=== PATIENT | female | born 1975 | race Caucasian/White ===

== ENCOUNTER → 2017-06-28 15:15 | Outpatient (CLI) | payer OTHER, SELFPAY ==
[2017-06-30 05:17] LABS: Hep A Ab, IgM Negative (Negative); Hepatitis B Core Antibody IgM Negative (Negative); Hepatitis B Surface Antigen Negative (Negative)
[2017-06-30 10:25] LABS: HIV Screen 4th Generation wRfx Non Reactive (Non Reactive); HSV 1 IgG, Type Spec <0.91 index (0.00-0.90); Hepatitis C Antibody <0.1 s/co ratio (0.0-0.9); Rapid Plasma Reagin Ab Titer Non Reactive (NonRea<1:1)
[2017-07-02 14:53] LABS: Neisseria gonorrhoeae, NAA Negative (Negative)
== END ==
PROVIDERS: Visit Provider Nurse Practitioner Obstetrics & Gynecology
DX: Z72.51 High risk heterosexual behavior (principal)
CPT/HCPCS: 36415; 80074; 86592; 86695; 86703; 86790; 87491; 87591; G0432

== ENCOUNTER → 2017-12-23 13:59 | Outpatient (CLI) | payer OTHER, SELFPAY ==
--- NOTE | 2017-12-23 14:00 | US_ITS ---
US transvaginal Ordering Physician: Santana Pop MD Patient Age: 42 years: Female HISTORY: ITS.REASON: US T/V- Pelvic pain irregular periods Pelvic pain following TECHNIQUE: COMPARISON : FINDINGS UTERUS enlarged. It measures 11 cm in length x 5.4 cm wide x 6.1 cm height. At least 2 fibroids are identified,; along with scar at uterus Endometrial stripe appears normal thickness measuring nearly 6 mm AP. A few Nabothian cyst noted. The largest measuring 5.8 mm with another measuring 5.5 mm.. Others are tiny FIBROID A at fundus measures 2.4 x 2 cm x 2.6 cm Fibroid B: anterior myometrium, merely submucosal. It Measures 1.4 x 2 cm x 1.7 cm No fluid in cul-de-sac. Right ovary 2.2 x 1.7 x 1.8 cm. \ Left ovary 2.5 x 1 0.5 to 1.9 cm Left ovary size resides posteriorly at pelvis IMPRESSION: Uterus mildly enlarged. At least 2 fibroids identified. The largest measuring 2.6 cm at the fundus Normal endometrial stripe. . Ovaries appear normal in size. No fluid in cul-de-sac.
== END ==
PROVIDERS: Family Provider Internal Medicine; PCP Family Medicine; Visit Provider Nurse Practitioner Obstetrics & Gynecology
DX: R10.2 Pelvic and perineal pain (principal); N92.6 Irregular menstruation, unspecified
CPT/HCPCS: 76830

== ENCOUNTER → 2018-02-24 10:31 | Outpatient (CLI) | payer OTHER, SELFPAY ==
[2018-02-24 12:46] LABS: Basophils % 0.8 % (0.1-2.0); Eosinophils # 0.2 K/mm3 (0.0-0.4); Eosinophils % 4.4 % (0.1-12.0); Hematocrit 39.9 % (37.0-47.0); Hemoglobin 12.7 g/dL (12.2-16.2); Lymphocytes # 1.7 K/mm3 (0.7-4.5); Lymphocytes % 31.6 % (10-50); Mean Corpuscular HGB Conc 31.8 g/dL (31.8-35.4); Mean Corpuscular Hemoglobin 30.8 pg (27.0-31.2); Mean Corpuscular Volume 96.7 fl (81-99); Mean Platelet Volume 8.2 fl (7.4-10.4); Monocytes # 0.3 K/mm3 (0.1-1.0); Neutrophils % 57.2 % (37.0-80.0); Platelet Count 319 K/mm3 (142-424); Red Blood Count 4.12 M/mm3 (4.20-5.40); Red Cell Distribution Width 13.7 % (11.5-17.5); White Blood Count 5.3 K/mm3 (4.8-10.8)
[2018-02-24 12:47] LABS: Anion Gap 11.3 mEq/L (5-15); Blood Urea Nitrogen 13 mg/dL (7-18); Calcium 8.6 mg/dL (8.5-10.1); Carbon Dioxide 29 mmol/L (21.0-32.0); Chloride 104 mmol/L (98-107); Creatinine,Serum 0.71 mg/dL (0.55-1.02); Estimated Glomerular Filt Rate 89 ml/min (>60); GFR (African American) 108 ML/MIN (>60); Glucose 106 mg/dL (74-106); Potassium 4.3 mmoL/L (3.5-5.1); Sodium 140 mmol/L (136-145)
[2018-02-26 12:14] LABS: Neisseria gonorrhoeae, NAA Negative (Negative)
== END ==
PROVIDERS: Visit Provider Nurse Practitioner Obstetrics & Gynecology
DX: Z01.818 Encounter for other preprocedural examination (principal); R10.9 Unspecified abdominal pain
CPT/HCPCS: 36415; 80048; 85025; 87491; 87591

== ENCOUNTER 2018-02-25 06:30 | Observation (INO) ==
--- NOTE | 2018-02-25 07:14 | Progress Note ---
[facility] Anesthesia Checklist - Patient Identification Patient Identification: Arm Band, Verbal (Name & ) - Structural Data Admitted From: Home [facility] Operative Procedure(s) Verified: Yes Verified Documents: History and Physical - NPO Status Verified Time NPO: 00:00 - Chart Verification Results Verified: CBC, BMP - Additional verifications Patient : No Anesthesia Reactions: No Hx Blood Transfusions: No Blood Transfusion Reaction: No Cephalosporin Allergy: No Previous Colonoscopy: No - Cardiovascular Assessment Heart Sounds: S1 & S2 Pulse Strength: Baseline Pulse Rhythm: Regular Peripheral Edema: No - Airway Assessment C-Spine Mobility Assessed: Yes TMJ Mobility Assessed: Yes Dentition: Good Dentition - Neurological Assessment Level of Consciousness: Awake, Alert, Appropriate Hx Seizures: No Numbness or tingling in extremities: No - Anesthesia Plan Anesthesia Risk discussed: Yes Anesthesia Plan: Verified ASA Class: II Anesthesia Type: General [facility] History I have reviewed the patient's past medical history: Yes Medical History: Reports:: Anxiety, Depression Denies:: Asthma, Cancer, Diabetes Mellitus Type 1, Diabetes Mellitus Type 2, Hypertension, Internal Pacemaker, MRSA, Seizures Other Medical History: Denies: Blood Transfusion Reaction Other Surgeries: Yes: Bariatric Surgery, , Tubal Ligation. No: Pacemaker Amputation: No Fractures: No - *Social History Educational Level: Attended College Smoking Status: Never smoker Alcohol Intake: never Substance Use Type: denies use Occupational Status: employed Housing: house Household Members: family - Psychiatric History Expresses thoughts of harming self/others: None Suicide Plan Description: No Plan Pschychiatric History:: Reports:: Anxiety, Depression *Family Hx:: Cancer, Hypertension
--- NOTE | 2018-02-25 10:31 | Operative Note ---
Date of procedure: 02/25/18 Pre-op Diagnosis:: Pelvic pain, fibroid uterus, dyspareunia, cystocele, rectocele, enterocele, Post-op Diagnosis:: Same Procedure performed:: Laparoscopically assisted vaginal hysterectomy, right salpingo-oophorectomy, left salpingectomy, anterior repair, posterior repair, repair of enterocele Surgeon:: Santana Pop MD Gear Technician(s):: Lacie Sahu PATTERN STORAGE CLERK:: Ricky Scanlon Anesthesia: GETA Estimated blood loss (mL): 150 Clinical Note:: She is a 42-year-old lady who complains of pain with intercourse as well as right-sided pain. She has had pain in her right ovary in the past. She expressed desire to have this removed at the time of surgery. She also had relaxation of the vagina with a large enterocele, rectocele and cystocele. As result of this we offered her anterior and posterior repair and repair of enterocele. Operative findings:: She had a bulky anteverted uterus. The left ovary was adherent to the left pelvic sidewall and there was a 3 cm cyst attached to the left ovary and the tubes appeared normal. The right ovary and tube appeared normal. The fallopian tubes had previously ligated. The appendix was visualized and appeared normal. The upper abdomen appeared normal. The bladder flap was normal as was the deep pelvis. There was no evidence of endometriosis. Operative note:: She was taken to the operating room where general anesthesia was found be adequate. She was prepped and draped in the normal sterile fashion in the semi- lithotomy position. A weighted speculum was placed in the vagina and the anterior lip of the cervix was grasped with a tenaculum. I inserted an acorn retractor into the cervical os. I then changed gloves and injected 10 mL of 0.5 percent ropivacaine around the umbilicus. I made a small incision within the umbilicus and inserted a Veress needle into the abdominal cavity. The abdominal cavity was then insufflated with carbon dioxide gas to a pressure of 20 Nury mercury. I then inserted an 11 mm trocar under direct vision. I injected through and through the pubic hairline, made a small incision here and inserted a 5 mm trocar under direct vision. I identified the inferior epigastric arteries on the LEFT side and went lateral to these and injected through and through with a spinal needle. I made a small incision and inserted an 11 mm trocar under direct vision. This was similarly performed on the patient's RIGHT side. The LEFT round ligament was then grasped and cut with Harmonic scalpel. This was followed by the LEFT tube. I then cut through and cauterized the LEFT utero- ovarian ligament. I opened up the peritoneum anteriorly to the midline. I then took down the posterior aspect of the broad ligament to the level of the uterosacral ligament on the LEFT side. The uterine arteries on the LEFT side were then skeletonized. Hemoclips were placed across the uterine arteries and then the uterine arteries were cauterized with Harmonic scalpel adjacent to the cervix. We then further took down the bladder anteriorly. I grasped the RIGHT round ligament and cut through this with Harmonic scalpel. This was followed by the RIGHT tube. I then cauterized and cut the RIGHT utero- ovarian ligament with Harmonic scalpel. I then freed up the peritoneum anteriorly on the RIGHT side joining up with the midline. I then took down the posterior aspect of the broad ligament to the level of the uterosacral ligament. The uterine arteries on the RIGHT side were skeletonized. Hemoclips were applied to the uterine arteries. I then cauterized and cut the uterine arteries with Harmonic scalpel adjacent to the cervix. I freed up the bladder pillars on the RIGHT side and the LEFT side. I freed up the bladder anteriorly along the cervix. I then grasped the right ovary and freed this up on its infundibulopelvic ligament using harmonic scalpel. I then placed 2 Endoloops on the infundibular pelvic ligament and cut away the tube and ovary. This was then placed into the pelvis to be retrieved at the vaginal portion of the surgery. The leg was then grasped and using harmonic scalpel I cut along the mesosalpinx.. There was a 3 cm distal left tubal cyst and I opened up into the cyst and then was able to remove the left ovary in its entirety. After assuring hemostasis we then turned our attention to the vaginal portion the surgery. The patient was placed in the lithotomy position. A weighted spectrum was placed in vagina. The cervix was quite high in the vagina. The anterior and posterior lip of the cervix were grasped with Francois tenacula. I injected 20 mL of 1 percent Xylocaine with epinephrine circumferentially about the cervix. I grasped the posterior aspect of the vagina and opened up into the posterior cul-de-sac. I then clamped cut and suture ligated the left uterosacral ligament. This is followed by the left cardinal ligament which was clamped cut and suture ligated. I then clamped cut and suture ligated the right uterosacral ligament followed by the right cardinal ligament. I then grasped the anterior peritoneum and dissected the bladder off using both sharp and blunt dissection. A Christina was then placed through this defect. I then clamped across the remaining tissue bilaterally. These were then suture ligated. The uterus was then removed from the abdominal cavity. I then removed redundant tissue in the posterior vagina where she had a large anterior. This was then closed using interrupted Vicryl suture in a mattress fashion. I then closed the posterior cuff of the vagina using running 2-0 Vicryl suture in a locked fashion from left to right. I then placed a Roth suture first through the posterior vagina and peritoneum then through the left perirectal fat. I plicated across the posterior peritoneum and then through the right perirectal fascia. The suture was then passed through the peritoneum and vagina and left to be tied at the end. I then placed a second suture slightly above the first suture in a similar fashion. I used 0 PDS suture. The peritoneum was then grasped anteriorly and using 2-0 PDS suture in a pursestring fashion I closed the peritoneum. I then performed an anterior repair by first grasping the vaginal mucosa using the clamps. Then using Metzenbaum scissors I dissected in the midline approximately to a level 2 cm below the urethra. I then grasped the edges of the vaginal mucosa with Allis clamps. The bladder was then dissected off the anterior vagina. Using 2-0 PDS suture in an interrupted fashion I performed a Elaina plication. I then closed the vaginal mucosa using interrupted 2-0 Vicryl suture in a mattress fashion. The vaginal vault was then closed using running 0 Vicryl suture in a locked fashion from left to right from anterior to posteriorly. I then tied the Roth sutures in the order in which they were placed. I then performed a posterior repair by first grasping the vaginal mucosa at the introitus where the cooper were from the weighted speculum. Using a knife I made a V-shaped incision into the posterior perineum. I then grasped the vaginal mucosa and using Metzenbaum scissors I dissected the vaginal mucosa off the rectum. I then dissected away a piece of posterior vaginal mucosa approximately 1 cm wide up to the level of the enterocele. I then grasped the vaginal mucosa at the vault and placed a 2-0 Vicryl suture here. I then plicated the posterior levator muscles using interrupted 2-0 PDS suture. I did this in a [id number] closing the vaginal mucosa in a running less than with the 2-0 Vicryl suture I had placed initially. I then closed the perineum using interrupted 2-0 PDS suture. The perineal skin was then closed using interrupted subcuticular 2-0 Vicryl suture. I then placed a Arteaga catheter in the bladder. Clear urine was seen to flow. I put a vaginal packing in the vagina. She was once of again placed in the semi-lithotomy position. I changed gloves. The abdominal cavity was insufflated with carbon oxide gas to a pressure of 20 mmHg. The pelvis was rinsed and once again hemostasis was assured. I elected to place a large Surgicel around the left ovary. I sprayed the raw peritoneal surfaces on both the left and right side with Nunu. I let the gas into the abdomen to once again assuring hemostasis with decreased intra-abdominal pressure. Once again hemostasis was assured. The secondary trochars were then removed under direct vision. The sites were hemostatic. The gas was let out of the abdomen and the primary trocar and camera were removed together. No bowel seen to follow. The 11 mm trocar sites were closed deeply with 2-0 Vicryl suture followed by running subcuticular 4-0 Monocryl suture. The 5 mm trocar site was closed with subcuticular 4-0 Monocryl suture. Sterile dressings were applied. The patient tolerated the procedure well and was taken to the recovery room in excellent condition. All sponge instrument and needle counts were correct. Estimate a blood loss was approximately 150 mL. Condition: stable Disposition: PACU Specimens:: Uterus, left fallopian tube, right salpingo-oophorectomy Complications:: None
--- NOTE | 2018-02-25 10:32 | Progress Note ---
[facility] Anesthesia Record Part I Intake, IV Amount: 1,300 Estimated blood loss (mL): 150 Urine output (mL): 50 Blood Products used (#): none Blood Pressure: 135/74 SaO2: 95 Pulse Rate: 90 Respiratory Rate: 20 Temperature: 98.4 F Patient is:: Awake, Stable Stable to PACU at:: 10:30
--- NOTE | 2018-02-25 10:33 | Progress Note ---
[facility] Anesthesia Record Part II Discharge Time: 11:00 Destination: Surgical Day Care (OP Surgery) PACU nurse assessment reviewed?: Yes Patient Condition:: Good Anesthesia Complications:: None
--- NOTE | 2018-02-25 12:13 | Operative Note ---
Date of procedure: 02/25/18 Pre-op Diagnosis:: Left lower quadrant pain, left ovarian cyst Post-op Diagnosis:: Left lower quadrant pain, hemorrhagic left ovarian cyst, adhesions of the ovary to the deep pelvis. Partial torsion of the infundibulopelvic ligament. Procedure performed:: Laparoscopic left oophorectomy, lysis of adhesions Surgeon:: Santana Ppo MD SEWING MACHINE ADJUSTER:: Ricky Scanlon Anesthesia: GETA Estimated blood loss (mL): 50 Clinical Note:: She is a 42-year-old lady who complains of severe left lower quadrant pain as well as lower abdominal pain. An ultrasound confirmed that she had a enlarged left ovary approximately 6 x 4 cm. There was a solid component and it was not clear whether this was blood or solid ovary. There were 2 small cyst within the ovary as well. After having discussed the risks benefits she like to have a left oophorectomy. Operative findings:: She had an enlarged 6 x 4 cm left ovary that was filled with chocolate colored fluid. This was consistent with an old hemorrhage in the ovary. The ovary itself was in the deep pelvis overlying the rectum. There was also a single twist of the infundibula pelvic ligament indicating partial torsion. The right ovary appeared completely normal. The tubes had been previously removed. The appendix is visualized appeared normal. Operative note:: She was taken the operating room where general anesthesia was found to be adequate. She was prepped and draped in the normal sterile fashion in the semilithotomy position. A sponge forcep was placed in the vagina. I injected 10 cc of 0.5% ropivacaine around the umbilicus and made a small incision within the umbilicus. I inserted a Veress needle into the abdominal cavity. The abdominal cavity was then insufflated with carbon dioxide gas to a pressure of 20 mmHg. I then inserted an 11 mm trocar under direct vision. I injected through and through at the pubic hairline, made a small incision here and inserted a 5 mm trocar under direct vision. I then identified the ureter epigastric arteries on the left side, went lateral to these and injected through and through. I made a small incision and inserted a 5 mm trocar in the left lower quadrant under direct vision. The left ovary was adherent to the sigmoid colon and I was able to bluntly dissect this free. I was able to easily peel it away from the peritoneum and the rectum. I then further bluntly dissected the ovary from deep pelvis and left pelvic sidewall. It was then freed up completely on its infundibula pelvic ligament. There was a small twist within the infundibula pelvic ligament. I then placed 2 Endoloops on the infundibulopelvic ligament. The ovary was then cut away. I further dissected off the ovary that were still adherent to the rectum and pelvic peritoneum using blunt dissection. I then placed a 5 mm camera in the left lower quadrant and placed an Endo Catch bag through the umbilical port. The ovary and bits of ovary were then placed within the Endo Catch bag and removed through the umbilical port. I then rinsed the pelvis well and once again assured hemostasis. I placed a large piece of Interceed in the pelvis overlying the rectum. I then injected approximately 25 cc of 0.5% came into the pelvis. The gas was out of the abdomen once again hemostasis was assured. I then remove the secondary trochars under direct vision. The gas was out of the abdomen and the primary trocar and camera were removed together. No bowel seen to follow. The 11 mm trocar site was closed deeply with interrupted [id number] 2-0 Vicryl suture. The skin was closed with septic care 4-0 Monocryl. The 5 mm trocar sites were closed with septic care 4-0 Monocryl. Sterile dressings were applied. The patient tolerated the procedure well and was taken to the recovery room in excellent condition. All sponge instrument and needle counts were correct. The estimated blood loss was less than 50 cc. Condition: stable Disposition: PACU Specimens:: Left ovary Complications:: None
[2018-02-25 16:11] LABS: Hematocrit 35.5 % (37.0-47.0); Hemoglobin 11.9 g/dL (12.2-16.2)
[2018-02-26 06:36] LABS: Eosinophils # 0.1 K/mm3 (0.0-0.4); Mean Platelet Volume 7.6 fl (7.4-10.4); Monocytes # 0.6 K/mm3 (0.1-1.0); Red Cell Distribution Width 13.8 % (11.5-17.5)
[2018-02-26 06:37] LABS: Anion Gap 9.5 mEq/L (5-15); Calcium 8.2 mg/dL (8.5-10.1); Potassium 3.5 mmoL/L (3.5-5.1)
[2018-02-26 06:41] LABS: Basophils % 0.3 % (0.1-2.0); Eosinophils % 0.7 % (0.1-12.0); Hematocrit 32.3 % (37.0-47.0); Lymphocytes % 27.3 % (10-50); Mean Corpuscular HGB Conc 32.6 g/dL (31.8-35.4); Mean Corpuscular Hemoglobin 31.4 pg (27.0-31.2); Mean Corpuscular Volume 96.1 fl (81-99); Neutrophils # 4.6 K/mm3 (1.8-7.8); Neutrophils % 63.7 % (37.0-80.0); Platelet Count 248 K/mm3 (142-424); Red Blood Count 3.37 M/mm3 (4.20-5.40); White Blood Count 7.2 K/mm3 (4.8-10.8)
[2018-02-26 06:46] LABS: Hemoglobin 10.6 g/dL (12.2-16.2)
--- NOTE | 2018-02-26 10:40 | Discharge Summary ---
General - General Admission date:: 02/25/18 Discharge date: 02/26/18 HPI HPI: She is a 42-year-old lady who complains of extremely painful intercourse. She had an ultrasound that showed a fibroid uterus. She also had chronic pelvic pain as well as right-sided pain. She had pelvic relaxation with cystocele, rectocele and enterocele. After having discussed the risks and benefits she elected to have a laparoscopically assisted vaginal hysterectomy and right salpingo-nephrectomy. We removed her left ovary. We did an anterior and posterior repair along with enterocele repair. Hospital Course Hospital Course: On February 25, 2018 she underwent a laparoscopic-assisted vaginal hysterectomy and right salpingo-nephrectomy. We did a left salpingectomy. We did an anterior, posterior and enterocele repair. She has done well and has remained afebrile throughout her hospitalization. She is eating and drinking and ambulating. She has had her Arteaga catheter removed. She is voiding well. She has not had a bowel movement yet. Her pain is reasonably well controlled with oral pain medicine. She denies any shortness of breath, calf tenderness or chest pain. We will plan to discharge her home today. She will follow-up with me in 2 weeks time. We have given her prescription for hydromorphone 2 mg 1 tablet every 4-6 hours as needed for pain. She will also take Tylenol and ibuprofen. Her condition on discharge is stable. Objective Vital signs: Temp Pulse Resp BP Pulse Ox 97.7 F 72 18 116/61 96 02/26/18 09:10 02/26/18 09:10 02/26/18 09:10 02/26/18 09:10 02/26/18 09:10 no acute distress - *Routine Respiratory Exam Comments: She has good air entry bilaterally and no accessory muscle use. - *Routine Cardiovascular Exam Present: RRR, Normal S1, Normal S2 - *Routine Abdominal Exam Present: soft, normoactive bowel sounds - *Routine Skin Exam Present: intact, warm - Detailed Eye Exam Eyelids: Left normal inspection Results Labs on day of discharge: Labs from last 24 hours 02/26/18 02/26/18 02/25/18 06:05 06:05 Unknown WBC 7.2 D RBC 3.37 L Hgb 10.6 L D Hct 32.3 L MCV 96.1 MCH 31.4 H MCHC 32.6 RDW 13.8 Plt Count 248 MPV 7.6 Neut % (Auto) 63.7 Lymph % (Auto) 27.3 [place] % (Auto) 8.0 Eos % (Auto) 0.7 Baso % (Auto) 0.3 Neut # (Auto) 4.6 Lymph # (Auto) 2.0 [place] # (Auto) 0.6 Eos # (Auto) 0.1 Baso # (Auto) 0.0 Sodium 141 Potassium 3.5 Chloride 106 Carbon Dioxide 29 Anion Gap 9.5 BUN 7 D Creatinine 0.76 Estimated Creat Clear 115 Estimated GFR 83 Est GFR ( Amer) 100 Glucose 97 Calcium 8.2 L Urine Color Yellow Urine Appearance Clear Urine pH 6.0 Ur Specific [place] 1.025 Urine Protein Trace Urine Glucose (UA) Negative Urine Ketones Trace Urine Blood 1+ Urine Nitrate Negative Urine Bilirubin Negative Urine Urobilinogen 0.2 Ur Leukocyte Esterase Negative Urine RBC 3-5 Urine WBC Occasional Ur Squamous Epith Cells 5-10 Urine Bacteria Trace 02/25/18 16:04 WBC RBC Hgb 11.9 L Hct 35.5 L MCV MCH MCHC RDW Plt Count MPV Neut % (Auto) Lymph % (Auto) [place] % (Auto) Eos % (Auto) Baso % (Auto) Neut # (Auto) Lymph # (Auto) [place] # (Auto) Eos # (Auto) Baso # (Auto) Sodium Potassium Chloride Carbon Dioxide Anion Gap BUN Creatinine Estimated Creat Clear Estimated GFR Est GFR ( Amer) Glucose Calcium Urine Color Urine Appearance Urine pH Ur Specific [place] Urine Protein Urine Glucose (UA) Urine Ketones Urine Blood Urine Nitrate Urine Bilirubin Urine Urobilinogen Ur Leukocyte Esterase Urine RBC Urine WBC Ur Squamous Epith Cells Urine Bacteria DS: Diagnosis - Discharge Diagnosis (1) Pelvic pain Status: Acute (2) Dyspareunia Status: Acute (3) Fibroid, uterine Status: Acute (4) Enterocele Status: Acute (5) Cystocele Status: Acute (6) Rectocele Status: Acute Discharge Plan - Patient Discharge Instructions ACTIVITY: No heavy lifting DIET: continue same diet - Follow up Plan Disposition: Home, Self-Nursing Home Medications: Home Medications Medication Instructions Recorded Confirmed Type fluoxetine 40 mg capsule 40 mg PO DAILY cap 06/28/17 02/04/18 History gabapentin 300 mg capsule 300 mg PO TID 06/28/17 02/04/18 History Prescriptions/Medication Reconciliation: New Hydromorphone HCl [Hydromorphone 2mg Tab] 2 mg PO Q4HP PRN #30 tab PRN Reason: Severe Pain Continue fluoxetine 40 mg capsule 40 mg PO DAILY cap gabapentin 300 mg capsule 300 mg PO TID
--- NOTE | 2018-02-26 12:13 | Pharmacy Consult Notes ---
[facility] Pharmacy VTE Monitoring - Patient Demographics Admission date: 02/26/18 Report Date: 02/26/18 Time: 12:13 Allergies/Adverse Reactions: Patient Allergies silver [From Tegaderm AG Mesh] Allergy (Verified 02/25/18 06:44) Blister Height: 1.6 m Weight: 77.111 kg Patient Problems: Current Active Problems Pelvic pain (Acute) Dyspareunia (Acute) Fibroid, uterine (Acute) Enterocele (Acute) Cystocele (Acute) Rectocele (Acute) - VTE Risk Labs: VTE Related Lab Results Hgb 10.6 g/dL (12.2-16.2) L D 02/26/18 06:05 Hct 32.3 % (37.0-47.0) L 02/26/18 06:05 Plt Count 248 K/mm3 (142-424) 02/26/18 06:05 BUN 7 mg/dL (7-18) D 02/26/18 06:05 Creatinine 0.76 mg/dL (0.55-1.02) 02/26/18 06:05 Estimated Creat Clear 115 mL/min (50-200) 02/26/18 06:05 - Prophylaxis Location of Applied Device: Refused - VTE Diagnosis Confirmed Comment: LOVENOX ORDERED
== END 2018-02-26 18:25 | disposition home or self-care (01) ==
LOC: OR 06:30 → OB 06:30
PROVIDERS: ADMIT Nurse Practitioner Obstetrics & Gynecology; ATTEND Nurse Practitioner Obstetrics & Gynecology

== ENCOUNTER → 2018-05-23 09:47 | Outpatient (CLI) | payer OTHER, SELFPAY ==
[2018-05-23 10:06] LABS: Basophils # 0.1 K/mm3 (0-0.2); Eosinophils # 0.4 K/mm3 (0.0-0.4); Eosinophils % 7.1 % (0.1-12.0); Hematocrit 40.3 % (37.0-47.0); Hemoglobin 13.3 g/dL (12.2-16.2); Lymphocytes # 1.6 K/mm3 (0.7-4.5); Lymphocytes % 32.1 % (10-50); Mean Corpuscular HGB Conc 32.9 g/dL (31.8-35.4); Mean Corpuscular Volume 94.2 fl (81-99); Mean Platelet Volume 7.4 fl (7.4-10.4); Monocytes # 0.4 K/mm3 (0.1-1.0); Monocytes % 7.9 % (1.7-9.3); Neutrophils # 2.6 K/mm3 (1.8-7.8); Platelet Count 269 K/mm3 (142-424); Red Blood Count 4.27 M/mm3 (4.20-5.40); Red Cell Distribution Width 13.4 % (11.5-17.5); White Blood Count 5.1 K/mm3 (4.8-10.8)
[2018-05-23 10:48] LABS: Amphetamine/Metha Screen,Urine Negative ng/mL (<1000); Barbiturates Screen,Urine Negative ng/mL (<200); Benzodiazepines Screen,Urine Negative ng/mL (<200); Cannabinoid Screen,Urine Negative ng/mL (<50); Cocaine Screen,Urine Negative ng/mL (<300); Methadone Screen,Urine Negative ng/mL (<300); Opiate Screen,Urine Negative ng/mL (<300); Phencyclidine Screen,Urine Negative ng/mL (<25)
[2018-05-23 11:49] LABS: Alanine Aminotransferase 14 U/L (12-78); Albumin Level 4.1 gm/dL (3.4-5.0); Albumin/Globulin Ratio 1.3 (1.1-1.8); Alkaline Phosphatase 59 U/L (46-116); Anion Gap 14.3 mEq/L (5-15); Aspartate Amino Transferase 9 U/L (15-37); Bilirubin,Total 0.5 mg/dL (0.2-1.0); Blood Urea Nitrogen 19 mg/dL (7-18); Carbon Dioxide 26 mmol/L (21.0-32.0); Chloride 104 mmol/L (98-107); Chol/HDL Ratio 3.6 (1-3.5); Cholesterol 214 mg/dL (140-200); Creatinine,Serum 0.65 mg/dL (0.55-1.02); Estimated Glomerular Filt Rate 99 ml/min (>60); GFR (African American) 119 ML/MIN (>60); Globulin 3.2 gm/dl (1.3-3.2); Glucose 85 mg/dL (74-106); HDL Cholesterol 59 mg/dL (29-89); LDL Cholesterol 140 mg/dL (0-130); Potassium 4.3 mmoL/L (3.5-5.1); Sodium 140 mmol/L (136-145); T4 (Thyroxine) 5.8 ug/dl (4.7-13.3); Thyroid Stimulating Hormone 1.98 uIU/ml (0.358-3.740); Total Protein,Serum 7.3 gm/dL (6.4-8.2); Triglycerides 77 mg/dL (30-200); Triiodothryronine (T3) Uptake 34 % (31-39); VLDL Cholesterol 15 mg/dL (0-40)
[2018-05-24 07:14] LABS: Hep A Ab, IgM Negative (Negative); Hepatitis B Core Antibody IgM Negative (Negative); Hepatitis B Surface Antigen Negative (Negative)
[2018-05-24 08:09] LABS: Hepatitis C Antibody <0.1 s/co ratio (0.0-0.9); Vitamin D 25 Hydroxy 23.8 ng/mL (30.0-100.0)
== END ==
PROVIDERS: Visit Provider Nurse Practitioner Family
DX: R53.83 Other fatigue (principal); Z79.899 Other long term (current) drug therapy; F32.9 Major depressive disorder, single episode, unspecified; F41.9 Anxiety disorder, unspecified
CPT/HCPCS: 36415; 80053; 80061; 80074; 80305; 82652; 84436; 84443; 84479; 85025

== ENCOUNTER → 2018-06-22 18:53 | Outpatient (CLI) | payer OTHER, SELFPAY ==
[2018-06-22 20:31] LABS: Amphetamine/Metha Screen,Urine Negative ng/mL (<1000); Barbiturates Screen,Urine Negative ng/mL (<200); Benzodiazepines Screen,Urine Negative ng/mL (<200); Cannabinoid Screen,Urine Negative ng/mL (<50); Cocaine Screen,Urine Negative ng/mL (<300); Methadone Screen,Urine Negative ng/mL (<300); Opiate Screen,Urine Negative ng/mL (<300); Phencyclidine Screen,Urine Negative ng/mL (<25)
== END ==
PROVIDERS: Visit Provider Nurse Practitioner Family
DX: Z79.899 Other long term (current) drug therapy (principal)
CPT/HCPCS: 80305

== ENCOUNTER → 2018-07-13 10:42 | Outpatient (CLI) | payer OTHER, SELFPAY ==
--- NOTE | 2018-07-13 10:46 | CT_ITS ---
CT Temporal bone Without INDICATION: ITS.REASON: complete hearing loss right ear ORDERING PHYSICIAN: Demetrius Espino MD PATIENT AGE: 43 years COMPARISON: None TECHNIQUE: Axial images are obtained without contrast. Sagittal and coronal reformatted images are reviewed as well. All CT scans at the facility use one or more dose reduction, viz: automated exposure control, ma/kV adjustment per patient size (including targeted exams where dose is matched to indication, i.e. head), or iterative reconstruction technique. FINDINGS: No mastoid effusion. The middle ear is well aerated on both sides. The middle ear ossicles have an unremarkable appearance. There is no evidence of skeletal erosion. There is some aeration of the petrous bone on the right as normal variant.. The acoustic foramina are symmetric. IMPRESSION: Unremarkable CT of the temporal bones
== END ==
PROVIDERS: PCP Emergency Medicine; Visit Provider Otolaryngology
DX: H90.5 Unspecified sensorineural hearing loss (principal); F41.9 Anxiety disorder, unspecified
CPT/HCPCS: 70480

== ENCOUNTER → 2018-07-26 14:43 | Outpatient (CLI) | payer OTHER, SELFPAY ==
[2018-07-26 16:12] LABS: Amphetamine/Metha Screen,Urine Negative ng/mL (<1000); Barbiturates Screen,Urine Negative ng/mL (<200); Benzodiazepines Screen,Urine Negative ng/mL (<200); Cannabinoid Screen,Urine Negative ng/mL (<50); Cocaine Screen,Urine Negative ng/mL (<300); Methadone Screen,Urine Negative ng/mL (<300); Opiate Screen,Urine Negative ng/mL (<300); Phencyclidine Screen,Urine Negative ng/mL (<25)
== END ==
PROVIDERS: Visit Provider Nurse Practitioner Family
DX: Z79.899 Other long term (current) drug therapy (principal)
CPT/HCPCS: 80305

== ENCOUNTER → 2018-09-14 14:15 | Outpatient (CLI) | payer OTHER, SELFPAY ==
[2018-09-14 14:45] LABS: Basophils % 0.5 % (0.1-2.0); Eosinophils # 0.2 K/mm3 (0.0-0.4); Eosinophils % 3.8 % (0.1-12.0); Hematocrit 38.2 % (37.0-47.0); Hemoglobin 13.1 g/dL (12.2-16.2); Lymphocytes # 1.9 K/mm3 (0.7-4.5); Lymphocytes % 42.1 % (10-50); Mean Corpuscular HGB Conc 34.3 g/dL (31.8-35.4); Mean Corpuscular Hemoglobin 31.2 pg (27.0-31.2); Mean Corpuscular Volume 90.9 fl (81-99); Mean Platelet Volume 7.7 fl (7.4-10.4); Monocytes # 0.3 K/mm3 (0.1-1.0); Monocytes % 6.1 % (1.7-9.3); Neutrophils # 2.1 K/mm3 (1.8-7.8); Neutrophils % 47.5 % (37.0-80.0); Platelet Count 299 K/mm3 (142-424); Red Cell Distribution Width 13.6 % (11.5-17.5); White Blood Count 4.4 K/mm3 (4.8-10.8)
[2018-09-14 17:09] LABS: Alanine Aminotransferase 19 U/L (12-78); Albumin Level 4.2 gm/dL (3.4-5.0); Albumin/Globulin Ratio 1.5 (1.1-1.8); Alkaline Phosphatase 67 U/L (46-116); Anion Gap 13.7 mEq/L (5-15); Aspartate Amino Transferase 11 U/L (15-37); Bilirubin,Total 0.6 mg/dL (0.2-1.0); Blood Urea Nitrogen 17 mg/dL (7-18); Carbon Dioxide 27 mmol/L (21.0-32.0); Chloride 105 mmol/L (98-107); Chol/HDL Ratio 4.3 (1-3.5); Cholesterol 228 mg/dL (140-200); Creatinine,Serum 0.65 mg/dL (0.55-1.02); Estimated Glomerular Filt Rate 99 ml/min (>60); GFR (African American) 119 ML/MIN (>60); Globulin 2.8 gm/dl (1.3-3.2); Glucose 85 mg/dL (74-106); HDL Cholesterol 53 mg/dL (29-89); LDL Cholesterol 153 mg/dL (0-130); Potassium 3.7 mmoL/L (3.5-5.1); Sodium 142 mmol/L (136-145); Triglycerides 110 mg/dL (30-200); VLDL Cholesterol 22 mg/dL (0-40)
[2018-09-16 07:33] LABS: Estradiol 46.7 pg/mL (.); FSH 44.8 mIU/mL (.); LH 37.3 mIU/mL (.)
== END ==
PROVIDERS: Visit Provider Nurse Practitioner Obstetrics & Gynecology
DX: Z01.419 Encounter for gynecological examination (general) (routine) without abnormal findings (principal); E34.9 Endocrine disorder, unspecified; R53.82 Chronic fatigue, unspecified; Z79.890 Hormone replacement therapy
CPT/HCPCS: 36415; 80053; 80061; 82670; 83001; 83002; 85025

== ENCOUNTER → 2018-11-17 14:30 | Outpatient (CLI) | payer OTHER, SELFPAY ==
--- NOTE | 2018-11-17 14:32 | MR_ITS ---
MR lumbar spine wo con, MR 3-d myelogram/MRCP HISTORY: LBP XYRS. RT sided LBP. Constant pain RT hip and leg. Numbness down RT leg. ITS.REASON: back pain ORDERING PHYSICIAN: Dima Hernandez MD PATIENT AGE: 43 years Comparison: None TECHNIQUE: Standard multiplanar multiecho sequences are performed without contrast. 3-D MIP and myelographic images are also rendered and reviewed FINDINGS: There is normal alignment. The spinal cord ends at the L1-L2 level. T12-L1: Mild bulging disc anteriorly. L1-L2: Unremarkable. L2-L3: Unremarkable. L3-L4: Unremarkable. L4-L5: Mild facet and ligamentum flavum hypertrophy with mild bilateral foraminal narrowing and mild bilateral lateral recess narrowing. L5-S1: Mild facet and ligamentum hypertrophy with mild left-sided foraminal narrowing. No canal stenosis or disc herniation evident. There is a cystic structure noted measuring 2.4 cm anterior to the left psoas muscle which could be ovarian in nature. Incompletely imaged. IMPRESSION: 1. Mild degenerative changes with mild facet and ligamentum flavum hypertrophy with mild lateral recess and foraminal narrowing. PLEASE SEE ABOVE FOR DETAILED DESCRIPTION AT EACH LEVEL. 2. No canal stenosis or disc herniation. 3. Cystic lesion anterior to the left psoas muscle in the upper pelvic region incompletely imaged possibly ovarian.
== END ==
PROVIDERS: PCP Emergency Medicine; Visit Provider Emergency Medicine
DX: M54.9 Dorsalgia, unspecified (principal); M54.5 Low back pain
CPT/HCPCS: 72148; 76376

== ENCOUNTER → 2018-11-25 17:36 | Outpatient (CLI) | payer OTHER, SELFPAY ==
[2018-11-25 19:48] LABS: Barbiturates Screen,Urine Negative ng/mL (<200); Benzodiazepines Screen,Urine Negative ng/mL (<200); Cannabinoid Screen,Urine Negative ng/mL (<50); Cocaine Screen,Urine Negative ng/mL (<300); Methadone Screen,Urine Negative ng/mL (<300); Opiate Screen,Urine Negative ng/mL (<300); Phencyclidine Screen,Urine Negative ng/mL (<25)
[2018-11-25 20:16] LABS: Amphetamine/Metha Screen,Urine Negative ng/mL (<1000)
[2018-12-02 04:17] LABS: Alprazolam Negative (Cutoff=100); Benzodiazepines Negative ng/mL (Cutoff=100); Clonazepam Negative (Cutoff=100); Flurazepam Negative (Cutoff=100); Lorazepam Negative (Cutoff=100); Midazolam Negative (Cutoff=100); Temazepam Negative (Cutoff=100); Triazolam Negative (Cutoff=100)
== END ==
PROVIDERS: Visit Provider Emergency Medicine
DX: Z79.899 Other long term (current) drug therapy (principal)
CPT/HCPCS: 80305; 80346

== ENCOUNTER → 2018-11-28 12:47 | Outpatient (POV) | payer OTHER, SELFPAY | PROVIDERS: Visit Provider Specialist | DX: G56.03 Carpal tunnel syndrome, bilateral upper limbs (principal); R20.0 Anesthesia of skin; R20.2 Paresthesia of skin | CPT/HCPCS: 95886; 95908 ==

== ENCOUNTER → 2018-12-09 13:20 | Outpatient (CLI) | payer OTHER, SELFPAY ==
[2018-12-09 14:50] LABS: Basophils % 0.6 % (0.1-2.0); Eosinophils # 0.3 K/mm3 (0.0-0.4); Eosinophils % 6.3 % (0.1-12.0); Hematocrit 45.1 % (37.0-47.0); Hemoglobin 14.4 g/dL (12.2-16.2); Lymphocytes # 1.8 K/mm3 (0.7-4.5); Lymphocytes % 42.1 % (10-50); Mean Corpuscular Hemoglobin 30.3 pg (27.0-31.2); Mean Corpuscular Volume 94.7 fl (81-99); Mean Platelet Volume 8.4 fl (7.4-10.4); Monocytes # 0.3 K/mm3 (0.1-1.0); Monocytes % 7.8 % (1.7-9.3); Neutrophils # 1.8 K/mm3 (1.8-7.8); Neutrophils % 43.1 % (37.0-80.0); Platelet Count 344 K/mm3 (142-424); Red Blood Count 4.76 M/mm3 (4.20-5.40); Red Cell Distribution Width 13.4 % (11.5-17.5); White Blood Count 4.2 K/mm3 (4.8-10.8)
[2018-12-09 15:18] LABS: Alanine Aminotransferase 15 U/L (12-78); Albumin Level 4.3 gm/dL (3.4-5.0); Albumin/Globulin Ratio 1.3 (1.1-1.8); Alkaline Phosphatase 74 U/L (46-116); Anion Gap 10.8 mEq/L (5-15); Aspartate Amino Transferase 15 U/L (15-37); Bilirubin,Total 0.4 mg/dL (0.2-1.0); Blood Urea Nitrogen 17 mg/dL (7-18); Calcium 9.7 mg/dL (8.5-10.1); Carbon Dioxide 29 mmol/L (21.0-32.0); Chloride 104 mmol/L (98-107); Creatinine,Serum 0.75 mg/dL (0.55-1.02); Estimated Glomerular Filt Rate 84 ml/min (>60); Free T4 (Free Thyroxine) 0.81 ng/dl (0.76-1.46); GFR (African American) 101 ML/MIN (>60); Globulin 3.3 gm/dl (1.3-3.2); Glucose 67 mg/dL (74-106); Potassium 4.8 mmoL/L (3.5-5.1); Sodium 139 mmol/L (136-145); Thyroid Stimulating Hormone 1.79 uIU/ml (0.358-3.740); Total Protein,Serum 7.6 gm/dL (6.4-8.2)
[2018-12-09 15:21] LABS: C-Reactive Protein < 0.2 mg/dL (0.0-0.9)
[2018-12-09 15:32] LABS: Erythrocyte Sedimentation Rate 7 mm/hr (0-20)
[2018-12-10 12:52] LABS: Vitamin B12 232 pg/mL (232-1245); Vitamin D 25 Hydroxy 22.8 ng/mL (30.0-100.0)
== END ==
PROVIDERS: Visit Provider Emergency Medicine
DX: R20.0 Anesthesia of skin (principal); R20.2 Paresthesia of skin
CPT/HCPCS: 80053; 82607; 82652; 84439; 84443; 85025; 85651; 86140

== ENCOUNTER → 2018-12-21 10:08 | Outpatient (CLI) | payer OTHER, SELFPAY ==
--- NOTE | 2018-12-21 10:09 | MR_ITS ---
PROCEDURE: MR CERVICAL SPINE WO CON CLINICAL INDICATION: radiating neck pain Bilateral arm tingling and numbness and tingling on the right side of neck, right-sided neck pain with headache dizziness and blurred vision COMPARISON: No exams were available for comparison TECHNIQUE: Standard multiplanar multiecho sequences are performed without contrast. 3-D MIP and myelographic images are also rendered and reviewed FINDINGS: There is normal alignment. The cranial cervical junction has an unremarkable appearance. C2-C3: Unremarkable. C3-C4: Unremarkable. C4-C5: Mild bulging disc eccentric toward the left without impingement. Mild left lateral recess and foraminal narrowing. C5-C6: Degenerate disc disease with mild bulging disc along with bilateral uncovertebral hypertrophy. There narrowing of the canal at 9 mm along with moderate bilateral lateral recess and severe bilateral foraminal narrowing. The bulging disc abuts the anterior aspect of the cord with minimal contour deformity anteriorly. C6-C7: Mild bulging disc along with mild uncovertebral hypertrophy. There is mild left foraminal narrowing. C7-T1: Unremarkable. IMPRESSION: 1. C4-C5: Mild bulging disc eccentric toward the left without impingement. Mild left lateral recess and foraminal narrowing. 2. C5-C6: Degenerate disc disease with mild bulging disc along with bilateral uncovertebral hypertrophy. There narrowing of the canal at 9 mm along with moderate bilateral lateral recess and severe bilateral foraminal narrowing. The bulging disc abuts the anterior aspect of the cord with minimal contour deformity anteriorly 3. No extruded herniated disc apparent Dictated by: Ziggy Hightower MD 12/23/2018 09:00 Electronically signed by Ziggy Hightower MD in [place] 12/23/2018 09:00
--- NOTE | 2018-12-21 10:09 | MR_ITS ---
PROCEDURE: MR HEAD/BRAIN WO CON CLINICAL INDICATION: numbness and tingling Bilateral arm numbness, tingling on right side neck and shoulder, headache and dizziness with blurred vision COMPARISON: No exams were available for comparison TECHNIQUE: Routine multiplanar multi echo sequences are performed without gadolinium enhancement. FINDINGS: No midline shift, mass effect, intracranial hemorrhage, hydrocephalus, or acute cortical infarction is evident. The cerebellopontine angle, cerebellum, and brainstem are unremarkable. There is a nonspecific small T2 white matter hyperintensity in the left occipital lobe nonspecific and may be due to a small gliotic focus. The pituitary, optic chiasm, corpus callosum, and craniocervical junction have an unremarkable appearance. There is mild mucosal thickening of the ethmoid and maxillary sinuses. There is only minimal increased T2 signal in the right mastoid sinus IMPRESSION: 1. No acute intracranial findings. 2. Mild sinus disease Dictated by: Ziggy Hightower MD 12/22/2018 17:08 Electronically signed by Ziggy Hightower MD in [place] 12/22/2018 17:08
== END ==
PROVIDERS: PCP Emergency Medicine; Visit Provider Emergency Medicine
DX: M54.2 Cervicalgia (principal); R20.0 Anesthesia of skin; R20.2 Paresthesia of skin
CPT/HCPCS: 70551; 72141; 76376

== ENCOUNTER → 2019-01-09 11:00 | Outpatient (POV) | payer OTHER, SELFPAY ==
[2019-01-09 11:28] VITALS: BP 126/84; PULSE 59; RESP 18; O2SAT 98; BMI 33.6
--- NOTE | 2019-01-09 12:49 | HMH.PMCON ---
Assessment and Plan (1) Degenerative disc disease, cervical Current visit: Yes Status: Chronic Category: Medical Code(s): M50.30 - Other cervical disc degeneration, unspecified cervical region - Assessment and plan all Dx Assessment and Plan for all problems:: I offered the patient injected therapy she is uninterested in this and would like to continue on her chronic medications from her primary care physician. Patient has an appointment with Dr. Orta I recommended calling her office if the would like her to proceed with epidurals prior to surgery. Dr. Webber has reviewed this note and agrees with this plan of care. This note was dictated using voice recognition software and may contain errors or omissions HPI - Data of Consult Patient: new to practice Requesting Physician: Donna Mcintyre APRN Primary Care Provider: Dima Hernandez MD Family Provider: Dr. Hernandez - Consult Narrative Reason for consult: Neck pain, back pain History of present illness: Ms. Cash is a 43 year old female who presents today for consultation in regards to her neck pain. Patient has a recent MRI showing C5-C6 degenerative disc disease mild bulging disc along with canal stenosis. Most of her pain is in her neck rating down her left arm. Patient does have an appointment with Dr. Orta. Primary care physician has started her on [place] and gabapentin. Patient and I had a long discussion in regards to treatment. Patient is uninterested in injective therapy she states she would like to continue on the medication at this time. CC: Donna Mcintyre APRN [facility] History I have reviewed the patient's past medical history: Yes Medical History: Reports:: Anxiety, Depression, Hyperlipidemia Denies:: Asthma, Cancer, Diabetes Mellitus Type 1, Diabetes Mellitus Type 2, Hypertension, Internal Pacemaker, MRSA, Seizures *Have you ever received a pneumonia vaccine?: Yes *Have you received a flu vaccine this season?: Yes Other Medical History: Denies: Blood Transfusion Reaction Laterality Cases: Bilateral: Other Other Surgeries: Yes: Bariatric Surgery, Cholecystectomy, , Hysterectomy-Total, Hysterectomy-Partial, Tubal Ligation, Other. No: Pacemaker Amputation: No Fractures: No - *Social History Smoking Status: Never smoker Alcohol Intake: never Substance Use Type: denies use *Occupational Status:: employed, other Housing: house Household Members: family *Travel in the last 8 weeks: None - Psychiatric History Pschychiatric History:: Reports:: Anxiety, Depression Family Hx:: Cancer, Hypertension, Heart Attack Review of Systems - Review of Systems ROS General: no recent weight change, no fever, no sleep disturbances Respiratory: no cough, no shortness of air, no recurring pulmonary infections Cardiovascular/Peripheral Vascular: No chest pain, No palpitations, no edema, no shortness of breath. Gastrointestinal: no incontinence, normal bowel movements reported Genitourinary: no incontinence Musculoskeletal: Neck pain, arm pain Psychiatric: normal mood/ affect, Neurological: [denies weakness in extremities], [denies balance issues] Meds Home Medications Medication Instructions Recorded Confirmed Type valacyclovir 500 mg tablet PO 30 Days #30 tab 03/14/18 12/30/18 History estradiol 2 mg tablet 2 mg PO DAILY #30 tab 09/21/18 12/30/18 Rx trazodone 50 mg tablet 50 mg PO QHS #30 tab 11/25/18 12/30/18 Rx cholecalciferol (vitamin D3) 1,000 1,000 unit PO DAILY #90 cap 12/12/18 12/30/18 Rx unit capsule ergocalciferol (vitamin D2) 50,000 50,000 unit PO QWEEK 90 Days #12 12/12/18 12/30/18 Rx unit capsule cap risperidone 0.25 mg tablet 0.25 mg PO BID #60 tab 12/14/18 12/30/18 Rx lamotrigine 25 mg tablet See Rx Instructions PO .COMPLEX 12/15/18 12/30/18 Rx #42 tab clonazepam 0.5 mg tablet 0.5 mg PO BID PRN 30 Days #60 tab 12/30/18 Rx gabapentin 800 mg tablet 800 mg PO TID 30 Days #90 tab 12/30/18 Rx Allerg
--- NOTE | 2019-01-09 12:54 | P.CONS_ITS ---
Assessment and Plan (1) Degenerative disc disease, cervical Current visit: Yes Status: Chronic Category: Medical Code(s): M50.30 - Other cervical disc degeneration, unspecified cervical region - Assessment and plan all Dx Assessment and Plan for all problems:: I offered the patient injected therapy she is uninterested in this and would like to continue on her chronic medications from her primary care physician. Patient has an appointment with Dr. Orta I recommended calling her office if the would like her to proceed with epidurals prior to surgery. Dr. Webber has reviewed this note and agrees with this plan of care. This note was dictated using voice recognition software and may contain errors or omissions HPI - Data of Consult Patient: new to practice Requesting Physician: Donna Mcintyre APRN Primary Care Provider: Dima Hernandez MD Family Provider: Dr. Hernandez - Consult Narrative Reason for consult: Neck pain, back pain History of present illness: Ms. Cash is a 43 year old female who presents today for consultation in regards to her neck pain. Patient has a recent MRI showing C5-C6 degenerative disc disease mild bulging disc along with canal stenosis. Most of her pain is in her neck rating down her left arm. Patient does have an appointment with Dr. Orta. Primary care physician has started her on [place] and gabapentin. Patient and I had a long discussion in regards to treatment. Patient is uninterested in injective therapy she states she would like to continue on the medication at this time. CC: Donna Mcintyre APRN [facility] History I have reviewed the patient's past medical history: Yes Medical History: Reports:: Anxiety, Depression, Hyperlipidemia Denies:: Asthma, Cancer, Diabetes Mellitus Type 1, Diabetes Mellitus Type 2, Hypertension, Internal Pacemaker, MRSA, Seizures *Have you ever received a pneumonia vaccine?: Yes *Have you received a flu vaccine this season?: Yes Other Medical History: Denies: Blood Transfusion Reaction Laterality Cases: Bilateral: Other Other Surgeries: Yes: Bariatric Surgery, Cholecystectomy, , Hysterectomy-Total, Hysterectomy-Partial, Tubal Ligation, Other. No: Pacemaker Amputation: No Fractures: No - *Social History Smoking Status: Never smoker Alcohol Intake: never Substance Use Type: denies use *Occupational Status:: employed, other Housing: house Household Members: family *Travel in the last 8 weeks: None - Psychiatric History Pschychiatric History:: Reports:: Anxiety, Depression Family Hx:: Cancer, Hypertension, Heart Attack Review of Systems - Review of Systems ROS General: no recent weight change, no fever, no sleep disturbances Respiratory: no cough, no shortness of air, no recurring pulmonary infections Cardiovascular/Peripheral Vascular: No chest pain, No palpitations, no edema, no shortness of breath. Gastrointestinal: no incontinence, normal bowel movements reported Genitourinary: no incontinence Musculoskeletal: Neck pain, arm pain Psychiatric: normal mood/ affect, Neurological: [denies weakness in extremities], [denies balance issues] Meds Home Medications Medication Instructions Recorded Confirmed Type valacyclovir 500 mg tablet PO 30 Days #30 tab 03/14/18 12/30/18 History estradiol 2 mg tablet 2 mg PO DAILY #30 tab 09/21/18 12/30/18 Rx trazodone 50 mg tablet 50 mg PO QHS #30 tab 11/25/18 12/30/18 Rx cholecalciferol (vitamin D3) 1,000 1,000 unit PO DAILY
== END ==
PROVIDERS: PCP Emergency Medicine; Visit Provider Clinical Nurse Specialist Family Health
DX: M50.30 Other cervical disc degeneration, unspecified cervical region (principal)
CPT/HCPCS: 99202

== ENCOUNTER → 2019-01-25 13:21 | Outpatient (CLI) | payer OTHER, SELFPAY ==
[2019-01-25 14:57] LABS: Amphetamine/Metha Screen,Urine Negative ng/mL (<1000); Barbiturates Screen,Urine Negative ng/mL (<200); Benzodiazepines Screen,Urine Negative ng/mL (<200); Cannabinoid Screen,Urine Negative ng/mL (<50); Cocaine Screen,Urine Negative ng/mL (<300); Methadone Screen,Urine Negative ng/mL (<300); Opiate Screen,Urine Positive ng/mL (<300); Phencyclidine Screen,Urine Negative ng/mL (<25)
[2019-01-30 11:12] LABS: Alprazolam Negative (Cutoff=100); Benzodiazepines Negative ng/mL (Cutoff=100); Clonazepam Negative (Cutoff=100); Flurazepam Negative (Cutoff=100); Lorazepam Negative (Cutoff=100); Midazolam Negative (Cutoff=100); Temazepam Negative (Cutoff=100); Triazolam Negative (Cutoff=100)
== END ==
PROVIDERS: Visit Provider Emergency Medicine
DX: M54.2 Cervicalgia (principal); Z79.899 Other long term (current) drug therapy
CPT/HCPCS: 80305; 80346

== ENCOUNTER → 2019-02-28 11:09 | Outpatient (POV) | payer OTHER, SELFPAY ==
[2019-02-28 12:16] VITALS: BP 128/62; PULSE 65; RESP 18; O2SAT 98; BMI 34.0
--- NOTE | 2019-03-06 15:08 | HMH.PAINSOAP ---
[facility] Pain Management SOAP Note Subjective:: Patient is a pleasant 44-year-old white female who presents today to discuss potential cervical epidural steroid injections. Patient was seen in our office sometime ago awaiting for neurosurgical consultation. She was uninterested in injective therapy at that time however she did not make it to her neurosurgical appointment. She would like to be considered again for cervical epidural steroid injections. Patient has neck pain radiation into her arms. Patient and I had a long discussion in regards to the cervical epidural steroid injection and she would like to move forward with this. She rates her pain a 5 out of 10 however it does increase. Patient is not on any anticoagulation therapy. She is continuing a home stretching program. ROS General: no recent weight change, no fever, no sleep disturbances Respiratory: no cough, no shortness of air, no recurring pulmonary infections Cardiovascular/Peripheral Vascular: No chest pain, No palpitations, no edema, no shortness of breath. Gastrointestinal: no new onset incontinence, normal bowel movements reported Genitourinary: no new onset incontinence Musculoskeletal: Neck pain, arm pain Psychiatric: normal mood/ affect Neurological: [denies new onset weakness in extremities], [denies new onset balance issues] Objective:: Physical Exam General: Alert and oriented x3, no acute distress, pleasant and cooperative, [on room air] Lungs: Resps E/U, Symmetrical chest expansion, Eyes: PERRL Musculoskeletal: Flexion and extension of cervical spine somewhat guarded secondary to pain, deep tendon reflexes normal, strength in upper and lower extremities [5/5], normal gait noted Neurological: speech clear, supervisor bit and shank department equal, no gross sensory deficits Assessment:: Degenerative disc disease cervical spine with cervical radiculopathy Plan:: We will plan a C5-C6 cervical epidural steroid injection with the patient believe it would be beneficial given the symptomology of the patient. I will follow-up with patient after injection reassess her symptoms at that time she has been instructed to call the office if she has any issues prior to her next appointment. Dr. Webber has reviewed this note and agrees with this plan of care. This note was dictated using voice recognition software and may contain errors or omissions [facility] History I have reviewed the patient's past medical history: Yes Medical History: Reports:: Anxiety, Depression, Hyperlipidemia Denies:: Asthma, Cancer, Diabetes Mellitus Type 1, Diabetes Mellitus Type 2, Hypertension, Internal Pacemaker, MRSA, Seizures *Have you ever received a pneumonia vaccine?: No *Have you received a flu vaccine this season?: No Other Medical History: Denies: Blood Transfusion Reaction Laterality Cases: Other Surgeries: Yes: Bariatric Surgery, Cholecystectomy, , Hysterectomy-Total, Hysterectomy-Partial, Tubal Ligation, Other. No: Pacemaker Amputation: No Fractures: No - *Social History Smoking Status: Never smoker Alcohol Intake: never Substance Use Type: denies use *Occupational Status:: other Housing: house Household Members: family *Travel in the last 8 weeks: None - Psychiatric History Pschychiatric History:: Reports:: Anxiety, Depression Family Hx:: Cancer, Hypertension, Heart Attack
== END ==
PROVIDERS: PCP Emergency Medicine; Visit Provider Clinical Nurse Specialist Family Health
DX: M50.10 Cervical disc disorder with radiculopathy, unspecified cervical region (principal)
CPT/HCPCS: 99212

== ENCOUNTER → 2019-03-24 13:33 | Outpatient (CLI) | payer OTHER, SELFPAY ==
[2019-03-24 14:29] LABS: Amphetamine/Metha Screen,Urine Negative ng/mL (<1000); Barbiturates Screen,Urine Negative ng/mL (<200); Benzodiazepines Screen,Urine Negative ng/mL (<200); Cannabinoid Screen,Urine Negative ng/mL (<50); Cocaine Screen,Urine Negative ng/mL (<300); Methadone Screen,Urine Negative ng/mL (<300); Opiate Screen,Urine Positive ng/mL (<300); Phencyclidine Screen,Urine Negative ng/mL (<25)
== END ==
PROVIDERS: Visit Provider Emergency Medicine
DX: F41.9 Anxiety disorder, unspecified (principal)
CPT/HCPCS: 80305

== ENCOUNTER → 2019-08-22 17:53 | Outpatient (CLI) | payer OTHER, SELFPAY ==
[2019-08-22 18:27] LABS: Basophils # 0.1 K/mm3 (0-0.2); Basophils % 1.4 % (0.1-2.0); Eosinophils # 0.3 K/mm3 (0.0-0.4); Eosinophils % 5.5 % (0.1-12.0); Hematocrit 41.3 % (37.0-47.0); Hemoglobin 13.9 g/dL (12.2-16.2); Lymphocytes # 2.2 K/mm3 (0.7-4.5); Lymphocytes % 37.9 % (10-50); Mean Corpuscular HGB Conc 33.8 g/dL (31.8-35.4); Mean Corpuscular Volume 91.7 fl (81-99); Mean Platelet Volume 8.8 fl (7.4-10.4); Monocytes # 0.4 K/mm3 (0.1-1.0); Monocytes % 6.5 % (1.7-9.3); Neutrophils # 2.8 K/mm3 (1.8-7.8); Neutrophils % 48.6 % (37.0-80.0); Platelet Count 317 K/mm3 (142-424); Red Cell Distribution Width 13.6 % (11.5-17.5); White Blood Count 5.8 K/mm3 (4.8-10.8)
[2019-08-22 19:41] LABS: Chloride 100 mmol/L (98-107)
[2019-08-22 19:42] LABS: Potassium 4.4 mmoL/L (3.5-5.1); Sodium 139 mmol/L (136-145)
[2019-08-22 19:44] LABS: Alanine Aminotransferase 15 U/L (12-78); Alkaline Phosphatase 66 U/L (38-126); Anion Gap 16.4 mEq/L (5-15); Aspartate Amino Transferase 28 U/L (14-36); Bilirubin,Total 0.5 mg/dl (0.2-1.3); Blood Urea Nitrogen 16 mg/dl (7-17); Carbon Dioxide 27 mmol/L (22.0-30.0); Estimated Glomerular Filt Rate 77 ml/min (>60); GFR (African American) 93 ML/MIN (>60)
[2019-08-22 19:45] LABS: Albumin Level 4.8 g/dl (3.5-5.0); Albumin/Globulin Ratio 1.5 (1.1-1.8); Calcium 9.9 mg/dl (8.4-10.2); Globulin 3.1 g/dL (1.3-3.2); Glucose 92 mg/dl (74-100); Magnesium 1.9 mg/dl (1.6-2.3); Total Protein,Serum 7.9 g/dl (6.3-8.2)
[2019-08-22 20:15] LABS: Erythrocyte Sedimentation Rate 16 mm/hr (0-20)
[2019-08-24 12:56] LABS: Vitamin D 25 Hydroxy 36.5 ng/mL (30.0-100.0)
== END ==
PROVIDERS: Visit Provider Emergency Medicine
DX: F41.9 Anxiety disorder, unspecified (principal); M54.2 Cervicalgia
CPT/HCPCS: 80053; 82652; 83735; 85025; 85651

== ENCOUNTER → 2019-10-15 15:46 | Outpatient (CLI) | payer OTHER, SELFPAY ==
--- NOTE | 2019-10-15 15:57 | XR_ITS ---
PROCEDURE: XR KNEE RT 3V Patient Age:44Y CLINICAL INDICATION: knee pain Right knee pain for 3 weeks stepped down out of bed and developed right knee pain. Large patient. COMPARISON: No exams were available for comparison FINDINGS: 3 right knee-3view: AP, lateral and oblique No fracture or dislocation. No lytic or blastic change. There is normal mineralization. The joint spaces are well-preserved in this large patient on this nonweightbearing film. No significant degenerative/arthritic changes. No erosive changes evident. IMPRESSION: Right knee intact. No fracture No significant acute findings Dictated by: Murali Arvizu MD 10/15/2019 21:44 Electronically signed by Murali Arvizu MD in [place] 10/15/2019 21:44
== END ==
PROVIDERS: PCP Emergency Medicine; Visit Provider Emergency Medicine
DX: M25.561 Pain in right knee (principal)
CPT/HCPCS: 73562

== ENCOUNTER → 2019-10-30 14:52 | Outpatient (CLI) | payer OTHER, SELFPAY ==
--- NOTE | 2019-10-30 15:03 | XR_ITS ---
PROCEDURE: XR KNEE RT 4V CLINICAL INDICATION: rt knee pain COMPARISON: XR KNEE RT 3V from 10/15/2019 FINDINGS: No fracture or dislocation. No lytic or blastic change. There is normal mineralization. Minimal osteoarthritic change of the lateral aspect of the patellofemoral joint. Minimal lateral patellar subluxation. There is lucency noted over the inferior aspect of the patella on the lateral view. Has there been recent surgery, injection, or trauma? Other findings:None. IMPRESSION: Minimal osteoarthritic change. Lucency noted along the inferior pole of the patella suggesting some soft tissue gas. Dictated by: Ziggy Hightower MD 10/30/2019 16:59 Electronically signed by Ziggy Hightower MD in [place] 10/30/2019 16:59
== END ==
PROVIDERS: PCP Emergency Medicine; Visit Provider Orthopaedic Surgery
DX: M25.561 Pain in right knee (principal)
CPT/HCPCS: 73564

== ENCOUNTER → 2019-11-09 08:06 | Outpatient (CLI) | payer OTHER, SELFPAY ==
--- NOTE | 2019-11-09 08:10 | MR_ITS ---
PROCEDURE: MR KNEE RT WO CON CLINICAL INDICATION: right knee pain Knee pain after [id number] ago. Pain when walking. Posterior and medial sided knee pain. Prior X-Ray 10-30-19 COMPARISON: XR KNEE RT 4V from 10/30/2019 TECHNIQUE: Routine multiplanar multi echo sequences are performed without gadolinium enhancement. FINDINGS: PCL is intact. The ACL somewhat ill-defined. Some fibers however do appear intact images. ACL injury is considered. The lateral collateral ligament complex appears intact. There is some mild edema along the superior aspect of medial collateral ligament. The patellar tendon and quadriceps tendon appear intact. There is some minimal thinning of the articular cartilage of the patella inferiorly suggesting mild chondromalacia patella. No obvious meniscal tear.. No significant effusion. IMPRESSION: 1. Suspect injury/partial tear of the ACL. A complete tear is not felt to be present. 2. Mild thickening of the superior aspect of the MCL suggesting ligamentous sprain but no evidence of a complete tear. 3. Chondromalacia patella Dictated by: Ziggy Hightower MD 11/10/2019 09:27 Electronically signed by Ziggy Hightower MD in [place] 11/10/2019 09:27
== END ==
PROVIDERS: PCP Emergency Medicine; Visit Provider Orthopaedic Surgery
DX: M25.569 Pain in unspecified knee (principal)
CPT/HCPCS: 73721

== ENCOUNTER 2019-11-21 14:45 | Outpatient (RCR) | payer OTHER, SELFPAY | END 2019-11-21 15:20 | disposition home or self-care (01) | LOC: PT 14:45 | PROVIDERS: Visit Provider Orthopaedic Surgery | DX: M22.41 Chondromalacia patellae, right knee (principal); S83.511D Sprain of anterior cruciate ligament of right knee, subsequent encounter; S83.411D Sprain of medial collateral ligament of right knee, subsequent encounter | CPT/HCPCS: 97760 ==

== ENCOUNTER 2019-12-04 15:44 | Outpatient (RCR) | payer OTHER, SELFPAY | END 2019-12-04 16:15 | disposition home or self-care (01) | LOC: PT 15:44 | PROVIDERS: Visit Provider Orthopaedic Surgery | DX: M25.561 Pain in right knee (principal) ==

== ENCOUNTER → 2020-04-29 14:24 | Outpatient (CLI) | payer OTHER, SELFPAY ==
--- NOTE | 2020-04-29 14:28 | XR_ITS ---
PROCEDURE: XR KNEE RT 4V CLINICAL INDICATION: RT knee pain COMPARISON: CR XR KNEE RT 3V from 10/15/2019 CR XR KNEE RT 4V from 10/30/2019 FINDINGS: No fracture or dislocation. No lytic or blastic change. There is normal mineralization. There is slight decrease in the joint space medially suggesting minimal osteoarthritic change. Other findings:None. IMPRESSION: Slight decrease in joint space medially which could be due to early osteoarthritis otherwise negative Dictated by: Ziggy Hightower MD 04/29/2020 16:01 Ziggy Hightower MD in [place] 04/29/2020 16:01
== END ==
PROVIDERS: PCP Emergency Medicine; Visit Provider Orthopaedic Surgery
DX: M25.561 Pain in right knee (principal)
CPT/HCPCS: 73564

== ENCOUNTER 2020-05-29 15:23 | Outpatient (RCR) | payer MEDICAID, SELFPAY | END 2020-05-29 16:00 | disposition home or self-care (01) | LOC: PT 15:23 | PROVIDERS: Visit Provider Orthopaedic Surgery | DX: M25.561 Pain in right knee (principal) | CPT/HCPCS: 97760 ==

== ENCOUNTER → 2020-09-06 14:21 | Outpatient (CLI) | payer MEDICAID, SELFPAY ==
--- NOTE | 2020-09-06 14:24 | XR_ITS ---
PROCEDURE: XR KNEE RT 4V CLINICAL INDICATION: RT knee pain COMPARISON: CR XR KNEE RT 3V from 10/15/2019 CR XR KNEE RT 4V from 10/30/2019 CR XR KNEE RT 4V from 04/29/2020 FINDINGS: No fracture or dislocation. No lytic or blastic change. There is normal mineralization. There is slight decrease in the joint space medially suggesting minimal osteoarthritic change Other findings:None. IMPRESSION: Minimal osteoarthritic change medial compartment Dictated by: Ziggy Hightower MD 09/06/2020 15:59 Ziggy Hightower MD in [place] 09/06/2020 15:59
== END ==
PROVIDERS: PCP Emergency Medicine; Visit Provider Orthopaedic Surgery
DX: M25.561 Pain in right knee (principal)
CPT/HCPCS: 73564

== ENCOUNTER → 2020-10-03 13:52 | Outpatient (CLI) | payer MEDICAID, SELFPAY ==
--- NOTE | 2020-10-03 13:52 | MR_ITS ---
PROCEDURE INFORMATION: Exam: MR Right Lower Extremity Joint Without Contrast, Knee Exam date and time: 10/03/2020 1:52 PM Age: 45 years old Clinical indication: Pain; Knee; Right; Additional info: RT knee pain. Knee pain with swelling. Pain inferior to patella and posterior knee pain. No trauma or injury. Knee instability. Prior MR 11-09-19 TECHNIQUE: Imaging protocol: MR of the Right lower extremity joint without contrast. Exam focused on the knee. COMPARISON: MR KNEE RT WO CON 11/09/2019 8:16 AM FINDINGS: Bones/joints: No acute fracture. No dislocation. [id number] degenerative changes of medial compartment, characterized by joint space narrowing, tiny marginal osteophytes, areas of partial and full-thickness denudation of cartilage lining medial femoral condyle and medial tibial plateau. Fluid: No significant joint effusion. Small Price's cyst. Medial meniscus: Complete radial tear near posterior meniscal root with partial medial extrusion. Oblique tear of posterior horn. Lateral meniscus: No definite tear. Anterior cruciate ligament: Intact. Posterior cruciate ligament: Intact. Medial capsule and supporting structures: Intact. Lateral capsule and supporting structures: Intact. Extensor mechanism of knee: Intact. Mild signal changes within distal quadriceps tendon. Muscles: Unremarkable. Soft tissues: Unremarkable. IMPRESSION: 1. Medial meniscal tear. 2. Mild quadriceps tendinosis.
== END ==
PROVIDERS: PCP Emergency Medicine; Visit Provider Orthopaedic Surgery
DX: M17.11 Unilateral primary osteoarthritis, right knee (principal); M22.41 Chondromalacia patellae, right knee; S83.511D Sprain of anterior cruciate ligament of right knee, subsequent encounter
CPT/HCPCS: 73721

== ENCOUNTER → 2020-12-31 15:36 | Outpatient (CLI) | payer MEDICAID, SELFPAY | PROVIDERS: PCP Emergency Medicine; Visit Provider Nurse Practitioner | DX: Z20.822 Contact with and (suspected) exposure to COVID-19 (principal) | CPT/HCPCS: C9803; U0003; U0005 ==

== ENCOUNTER 2021-05-14 16:19 | Emergency (ER) | payer OTHER, MEDICAID, SELFPAY ==
[2021-05-14 17:10] VITALS: BP 171/110; PULSE 67; RESP 18; TEMP 36.8; O2SAT 98; BMI 30.1
[2021-05-14 17:25] LABS: Adenovirus,PCR Not Detected (NotDetected); Bordetella Pertussis Not Detected (NotDetected); Chlamydophila Pneumoniae, PCR Not Detected (NotDetected); Coronavirus 229E Not Detected (NotDetected); Coronavirus NL63 Not Detected (NotDetected); Coronavirus OC43 Not Detected (NotDetected); Coronovirus HKU1,PCR Not Detected (NotDetected); Human Metapneumovirus Not Detected (NotDetected); Influenza A, PCR Not Detected (NotDetected); Influenza AH1, 2009 Not Detected (NotDetected); Influenza AH1, PCR Not Detected (NotDetected); Influenza AH3,PCR Not Detected (NotDetected); Influenza B, PCR Not Detected (NotDetected); Mycoplasma Pneumoniae, PCR Not Detected (NotDetected); Parainfluenza 1, PCR Not Detected (NotDetected); Parainfluenza 2, PCR Not Detected (NotDetected); Parainfluenza 3, PCR Not Detected (NotDetected); Parainfluenza 4, PCR Not Detected (NotDetected); Respiratory Syncytial Virus Not Detected (NotDetected); Rhinovirus/Enterovirus Not Detected (NotDetected)
--- NOTE | 2021-05-14 17:56 | HMH.EDUTC ---
[facility] Disposition Clinical Impression: Viral syndrome Disposition: Home, Self-Care Condition on Discharge: Good Instructions: DI for Viral Syndrome, DI for COVID-19 (Suspected or Confirmed ), Preventing the Spread of Coronavirus Discharge Instructions Additional Instructions: *Monitor Temp, Over the counter Motrin or Tylenol as directed/as needed Tylenol every 4 hours and Motrin every 6 hours (as long as your family doctor has told you that you can take it) for fever or pain. and straight to ER if unable to lower temp less than 101.0 after medication given *Warm salt water gargles may help to soothe the throat *Throat Lozenges *Warm fluids like tea with honey may help to soothe the throat *Sleep elevated *Humidifier/Vaporizer Over the counter cough and cold medications may help with symptoms Follow up IMMEDIATELY for new or worsening symptoms or no Noticeable improvement over the next 48-72 hours. 911 for difficulty breathing or swallowing You were tested for today for COVID19 your test result should be back in the next 24-48 hours, you may check your results on the [facility] portal if you have trouble logging on you may call support to help you Make sure to take your Vitamins Vit. C Vit D and Zinc if you can take them Follow up with your family doctor for re-evaluation of blood pressure Referrals: Shandra Delarosa [Primary Care Provider] - As needed Forms: Work/School Release Time of Disposition: 18:00 Medical Decision Making - Jorge Inquiry Pt receiving controlled substance: No Jorge was queried for this patient: No Vital Signs: 05/14/21 17:10 Temperature 98.2 F Temperature Source Oral Pulse Rate [Right Brachial] 67 Respiratory Rate 18 Blood Pressure [Right Arm] 171/110 H Blood Pressure Mean [Right Arm] 130 Blood Pressure Source [Right Arm] Automatic Cuff Blood Pressure Position [Right Arm] Sitting 02 Sat by Pulse Oximetry 98 Oxygen Delivery Method Room Air Orders (Tests/Meds): ORDERS Category Date Time Status Full Resp Panel w/COVID ([facility]) Routine Lab 05/14/21 17:18 Received Medical Decision Narrative: rechecked blood pressure was 146/96 [facility] HPI - General Stated complaint: COVID TEST,COUGH,ANTHONY,DIARRHEA,RUNNY NOSE Time Seen by Provider: 05/14/21 17:56 Mode of Arrival: Ambulatory Source of Information: Patient Limitations: No Limitations Description of Symptoms (Recalled from Triage Doc. by RN): PATIENT C/O COUGH, FEVER, HEADACHE, DIARRHEA, RUNNY NOSE X 2 DAYS. SHE REPORTS BEING EXPOSED TO COVID AT WORK, AND STATES HER GRANDCHILDREN HAD A VIRUS LAST WEEK HEENT Symptoms (Recalled from RN notes): Yes Resp Symptoms (Recalled from RN notes): Yes Skin Symptoms (Recalled from RN notes): No MS Symptoms (Recalled from RN notes): No Functional Status (Recalled from RN notes): WNL - History of Present Illness Provider Complaint: Patient states that 8 out of 10 people at her cubicle at work is out with COVID States that she has been having headache, body aches, chills, diarrhea, nasal congestion and low grade fever started 2 days ago State that also her grandchildren was sick last week with a virus so she wanted to get tested - Related Data Previous Rx's Medication Instructions Recorded naloxegol 25 mg tablet 25 mg PO DAILY #30 tab 07/14/19 clonazepam 0.5 mg tablet 0.5 mg PO BID #60 tab 10/16/19 gabapentin 800 mg tablet 800 mg PO TID 30 Days #90 tab 10/16/19 metformin 500 mg tablet 500 mg PO DAILY #30 tab 10/16/19 hydrocodone 5 mg-acetaminophen 325 1 tab PO TID PRN #90 tab 11/13/19 mg tablet linaclotide 290 mcg capsule 290 mcg PO DAILY #90 cap 01/30/20 estradiol 1 mg tablet 1 mg PO DAILY #30 tab 12/09/20 valacyclovir 500 mg tablet 500 mg PO DAILY #30 tab 12/09/20 estradiol 0.1 mg/24 hr semiweekly 1 patch TRANSDERMA .twice weekly 02/03/21 transdermal patch #8 each fluconazole 200 mg tablet 200 mg PO DAILY #7 tab 03/12/21 terconazole 0.8 % vaginal cream 1 appful VAGINAL HS 3 Days #20 g
[2021-05-14 18:05] VITALS: BP 147/92; PULSE 67; RESP 18; TEMP 36.8; O2SAT 98
[2021-05-14 18:44] LABS: Coronavirus 19, PCR Detected (NotDetected)
== END 2021-05-14 18:10 | disposition home or self-care (01) ==
PROVIDERS: Emergency Provider Nurse Practitioner; PCP Emergency Medicine
DX: U07.1 COVID-19 (principal); E78.5 Hyperlipidemia, unspecified; F41.8 Other specified anxiety disorders
CPT/HCPCS: 87581; 87632; 87798; 99202; C9803; G0463; U0003; U0005

== ENCOUNTER 2021-11-07 15:40 | Emergency (ER) | payer OTHER, MEDICAID, SELFPAY ==
[2021-11-07 16:04] VITALS: BP 120/73; PULSE 71; RESP 16; TEMP 36.8; O2SAT 98; BMI 27.7
--- NOTE | 2021-11-07 16:07 | HMH.EDUTC ---
[facility] [place] Clinical Impression: BV (bacterial vaginosis) Disposition: Home, Self-Care Condition on Discharge: Good Instructions: Bacterial Vaginosis, DI for Bacterial Vaginosis, Metronidazole Additional Instructions: Take medication as prescribed FOllow up with your Family Doctor if needed Make sure to call in one week to see if your test results are back or follow up with your Family Doctor for further treatment Return if needed Straight to ER if any life threatening symptoms Prescriptions: metroNIDAZOLE [metroNIDAZOLE 500mg Tablet] 500 mg PO Q12H 7 Days #14 tab Transmission Status: Pending to [facility] Referrals: Shandra Delarosa [Primary Care Provider] - As needed Time of Disposition: 16:21 Medical Decision Making - Jorge Inquiry Pt receiving controlled substance: No Jorge was queried for this patient: No Vital Signs: 11/07/21 16:04 11/07/21 16:21 Temperature 98.2 F 98.2 F Temperature Source Oral Pulse Rate 71 Pulse Rate [Left Radial] 71 Respiratory Rate 16 16 Blood Pressure 120/73 Blood Pressure [Right Arm] 120/73 Blood Pressure Mean [Right Arm] 88 Blood Pressure Source [Right Arm] Automatic Cuff Blood Pressure Position [Right Arm] Sitting 02 Sat by Pulse Oximetry 98 Oxygen Delivery Method Room Air Room Air Orders (Tests/Meds): ORDERS Category Date Time Status UA [Urinalysis and Microscopic] Stat Lab 11/07/21 16:00 Ordered [facility] [place] - General Stated complaint: female issues, called [facility] earlier Time Seen by Provider: 11/07/21 16:07 Mode of Arrival: Ambulatory Source of Information: Patient Limitations: No Limitations Description of Symptoms (Recalled from Triage Doc. by RN): vaginal discharge with odor for 3 weeks HEENT Symptoms (Recalled from RN notes): No Resp Symptoms (Recalled from RN notes): No Skin Symptoms (Recalled from RN notes): No MS Symptoms (Recalled from RN notes): No Functional Status (Recalled from RN notes): na - History of Present Illness Provider Complaint: Patient states that she recently had unprotected sex with salty she was seeing States that for the last 3 weeks she has been having grayish white/yellow discharge with odor States that her PCP recently treated her for yeast infection but it has got worse States that she is having itching and burning with urination and odor so she came in to get checked for STD - Related Data Home Medications Medication Instructions Recorded Confirmed bupropion HCl 100 mg tablet,12 hr 100 mg PO each 06/11/21 06/11/21 sustained-release clonazepam 1 mg tablet 1 mg PO tab 06/11/21 06/11/21 oxycodone-acetaminophen 7.5 mg-325 1 tab PO tab 06/11/21 06/11/21 mg tablet topiramate 50 mg tablet 50 mg PO tab 06/11/21 06/11/21 trazodone 50 mg tablet 50 mg PO tab 06/11/21 06/11/21 Previous Rx's Medication Instructions Recorded naloxegol 25 mg tablet 25 mg PO DAILY #30 tab 07/14/19 gabapentin 800 mg tablet 800 mg PO TID 30 Days #90 tab 10/16/19 valacyclovir 500 mg tablet 500 mg PO DAILY #30 tab 12/09/20 terconazole 0.8 % vaginal cream 1 appful VAGINAL HS 3 Days #20 g 03/12/21 estradiol 0.1 mg/24 hr semiweekly 1 patch TRANSDERMA .twice weekly 08/12/21 transdermal patch #8 each metroNIDAZOLE [metroNIDAZOLE 500mg 500 mg PO Q12H 7 Days #14 tab 11/07/21 Tablet] Allergies Allergy/AdvReac Type Severity Reaction Status Date / Time silver Allergy Rash Verified 06/11/21 16:14 [From Tegaderm AG Mesh] - Worker's Comp Is this a Worker's Comp case?: No [facility] History - Hepatitis A Screen Attestation statement:: This patient has been screened for Hepatitis A risk factors. I have reviewed the patient's past medical history: Yes Medical History: Reports:: Anxiety, Cancer, Depression, Hyperlipidemia Denies:: Asthma, Diabetes Mellitus Type 1, Diabetes Mellitus Type 2, Hypertension, Internal Pacemaker, MRSA, Seizures Other Medical History: Denies: Blood Transfusion Reaction
[2021-11-07 16:12] LABS: Microscopic, Urine URINE MICROSCOPIC (MICROSCOPIC)
[2021-11-07 16:21] VITALS: BP 120/73; PULSE 71; RESP 16; TEMP 36.8; O2SAT 98
[2021-11-07 16:21] LABS: Appearance,Urine SL CLOUDY (Clear); Blood, Urine TRACE-I (Negative); Color,Urine YELLOW (Yellow); Glucose,Urine (UA) Negative (Negative); Ketones,Urine TRACE (Negative); Leukocyte Esterase,Urine 1+ (Negative); Nitrate,Urine Negative (Negative); Protein,Urine TRACE (Negative); Specific Gravity, Urine >= 1.030 (1.005-1.030); Urobilinogen,Urine 0.2 EU/dl (0.2)
[2021-11-07 16:32] LABS: Bilirubin,Urine 1+ (Negative)
[2021-11-07 16:37] LABS: Bacteria,Urine 1+ /lpf
[2021-11-10 22:10] LABS: Neisseria gonorrhoeae, NAA Negative (Negative)
== END 2021-11-07 16:36 | disposition home or self-care (01) ==
PROVIDERS: Emergency Provider Nurse Practitioner; PCP Emergency Medicine
DX: N76.0 Acute vaginitis (principal); E78.5 Hyperlipidemia, unspecified; D25.9 Leiomyoma of uterus, unspecified; F32.A Depression, unspecified; F41.9 Anxiety disorder, unspecified; Z85.9 Personal history of malignant neoplasm, unspecified; Z79.890 Hormone replacement therapy; Z79.1 Long term (current) use of non-steroidal anti-inflammatories (NSAID); Z79.899 Other long term (current) drug therapy; Z91.048 Other nonmedicinal substance allergy status; Z82.49 Family history of ischemic heart disease and other diseases of the circulatory system; Z80.9 Family history of malignant neoplasm, unspecified
CPT/HCPCS: 81001; 87086; 87491; 87591; 99213; G0463

== ENCOUNTER 2022-04-15 13:41 | Emergency (ER) | payer MEDICAID, SELFPAY ==
[2022-04-15 13:50] VITALS: BP 148/68; PULSE 77; RESP 21; TEMP 36.6; O2SAT 100; BMI 29.9
--- NOTE | 2022-04-15 14:01 | EXP.UTC ---
Discharge Plan Disposition Patient Disposition: Home, Self-Care Condition: Good Prescriptions Prescriptions: New cefdinir 300 mg capsule 300 mg PO BID Qty: 20 0RF fluticasone propionate [Flonase Allergy Relief] 50 mcg/actuation spray,suspension 1 spray intranasal DAILY Qty: 16 0RF Rx Instructions: administer into each nostril No Action oxycodone-acetaminophen 7.5-325 mg tablet 1 tab PO Label Comments: TAKE ONE TABLET BY MOUTH THREE TIMES DAILY clonazepam 1 mg tablet 1 mg PO topiramate 50 mg tablet 50 mg PO Label Comments: TAKE ONE TABLET BY MOUTH TWICE DAILY bupropion HCl 100 mg tablet sustained-release 12 hr 100 mg PO trazodone 50 mg tablet 50 mg PO Movantik 25 mg tablet 25 mg PO DAILY Qty: 30 0RF Rx Instructions: must be taken on empty stomach; no food 1 hr after or 2-3 hrs before dose gabapentin 800 mg tablet 800 mg PO TID 30 Days Qty: 90 1RF valacyclovir [Valtrex] 500 mg tablet 500 mg PO DAILY Qty: 30 2RF terconazole 0.8 % cream 1 appful VAGINAL HS 3 Days Qty: 20 1RF estradiol [Minivelle] 0.1 mg/24 hr patch semiweekly 1 patch TRANSDERMA .twice weekly Qty: 8 6RF metronidazole 500 MG tablet 500 mg PO Q12H 7 Days Qty: 14 0RF Referrals Follow up/Referrals: Provider,Referral, MD [Primary Care Provider] - See instructions Activity Restrictions/Add. Instructions Additional Instructions/Restrictions: *Monitor Temp, Over the counter Motrin or Tylenol as directed/as needed Tylenol every 4 hours and Motrin every 6 hours (as long as your family doctor has told you that you can take it) for fever or pain. and straight to ER if unable to lower temp less than 101.0 after medication given *Warm salt water gargles may help to soothe the throat *Throat Lozenges? *Warm fluids like tea with honey may help to soothe the throat? *Sleep elevated *Humidifier/Vaporizer Your throat swab was sent for culture. Those results are typically sent to your primary care. Be sure to follow up in 2-3 days with your family doctor/primary care physician if no improvement so they can review those result and treat if necessary. If you don?t have a primary care doctor, I recommend you get one but in the mean time, you will have to return to a walk in clinic Follow up IMMEDIATELY for new or worsening symptoms or no Noticeable improvement over the next 48-72 hours. 911 for difficulty breathing or swallowing Clinical Impressions Clinical Impression: Pharyngitis Stand Alone Forms Stand Alone Forms: Work/School Release Instructions Patient Instructions: Sore Throat, DI for Nasal Congestion Discharge ED Provider: Sheridan Law [facility] H[place] General Stated complaint: sore throat, ANTHONY, cough, runny nose Time Seen by Provider: 04/15/22 14:01 History of Present Illness Provider Complaint: Patient states that she hasnt been feeling well for a couple of days States that she has been having sore throat, runny nose, cough and low grade fever and her grandchildren has strep and she has been around them States that today she was barely able to talk States that her throat has continued to hurt so she came in to get checked Related Data Home Medications Medication Instructions Recorded Confirmed bupropion HCl 100 mg tablet,12 hr 100 mg PO 06/11/21 06/11/21 sustained-release clonazepam 1 mg tablet 1 mg PO 06/11/21 06/11/21 oxycodone-acetaminophen 7.5 mg-325 1 tab PO 06/11/21 06/11/21 mg tablet topiramate 50 mg tablet 50 mg PO 06/11/21 06/11/21 trazodone 50 mg tablet 50 mg PO 06/11/21 06/11/21 Previous Rx's Medication Instructions Recorded naloxegol 25 mg tablet (Movantik) 25 mg PO DAILY #30 tabs 07/14/19 gabapentin 800 mg tablet 800 mg PO TID NEUROPATHY 30 days 10/16/19 #90 tabs valacyclovir 500 mg tablet 500 mg PO DAILY #30 tabs 12/09/20 (Valtrex) terconazole 0.8 % vaginal cream 1 appful vaginal HS 3 d
[2022-04-15 14:26] LABS: UTC Strep Screen (Rapid) Negative (Negative)
[2022-04-15 14:31] VITALS: BP 148/68; PULSE 77; RESP 21; TEMP 36.6; O2SAT 100
== END 2022-04-15 15:05 | disposition home or self-care (01) ==
PROVIDERS: Emergency Provider Nurse Practitioner
DX: J02.9 Acute pharyngitis, unspecified (principal)
CPT/HCPCS: 87880; 99212; G0463

== ENCOUNTER → 2022-09-04 09:25 | Outpatient (CLI) | payer MEDICAID, SELFPAY ==
--- NOTE | 2022-09-04 09:29 | XR_ITS ---
FINAL REPORT CLINICAL HISTORY: lt knee pain, fall COMPARISON: None FINDINGS: LEFT KNEE: Three views of the left knee were obtained. There is no acute fracture or dislocation. Mild degenerative change. There is mild medial compartment narrowing. Visualized joint spaces are normally aligned. There is a small joint effusion. Soft tissues are unremarkable. IMPRESSION: Mild degenerative changes without acute bony abnormality. Reviewed, Interpreted and Dictated by Juanito Chakraborty III, MD Transcribed by Rhonda Suárez Authenticated and . [facility]
== END ==
PROVIDERS: PCP Emergency Medicine; Visit Provider Orthopaedic Surgery
DX: M25.562 Pain in left knee (principal)
CPT/HCPCS: 73562

== ENCOUNTER 2022-09-04 10:38 | Outpatient (RCR) | payer MEDICAID, SELFPAY | END 2022-09-04 11:30 | disposition home or self-care (01) | LOC: PT 10:38 | PROVIDERS: Visit Provider Orthopaedic Surgery | DX: M17.0 Bilateral primary osteoarthritis of knee (principal); S89.92XA Unspecified injury of left lower leg, initial encounter | CPT/HCPCS: 97760 ==

== ENCOUNTER → 2022-10-09 08:23 | Outpatient (CLI) | payer MEDICAID, SELFPAY ==
--- NOTE | 2022-10-09 09:28 | MR_ITS ---
FINAL REPORT CLINICAL HISTORY: Knee pain COMPARISON: None FINDINGS: Multi planar MR imaging was performed of the left knee. The anterior and posterior cruciate ligaments are intact. The quadriceps and patellar tendons are intact. There is abnormal signal in the posterior horn of the medial meniscus consistent with intrasubstance degenerative change. The lateral meniscus is intact. The medial and lateral collateral ligaments appear intact. The medial and lateral retinacula appear intact. There is no evidence of bone marrow edema or osteochondral defect. There are mild osteophytes present at the medial joint margin of the knee. IMPRESSION: Abnormal signal posterior horn medial meniscus consistent with intrasubstance degeneration. Small osteophytes present at the medial joint margin of the knee. Reviewed, Interpreted and Dictated by Jefferson Lundberg MD Transcribed by Ellen Harmon Authenticated and . [facility]
== END ==
PROVIDERS: PCP Emergency Medicine; Visit Provider Orthopaedic Surgery
DX: M25.562 Pain in left knee (principal); M23.92 Unspecified internal derangement of left knee
CPT/HCPCS: 73721

== ENCOUNTER 2022-10-09 10:48 | Emergency (ER) | payer MEDICAID, SELFPAY ==
[2022-10-09] VITALS (13 sets, daily range): BP systolic 121–168; BP diastolic 85–113; PULSE 63–74; RESP 16–18; TEMP 36.5; O2SAT 96–98; BMI 29.9
--- NOTE | 2022-10-09 10:39 | ECG_ITS ---
APPROVED REPORT Exam: Resting ECG HR:76 bpm ECG Measurements Heart Rate 76 AXES MD 161 P 9 QRSd 90 QRS 33 QT 371 T 30 QTc 401 Conclusion SINUS RHYTHM NORMAL ECG UNCONFIRMED REPORT Electronically signed by : Ricky Myers MD 10/09/2022 21:27:09
--- NOTE | 2022-10-09 11:00 | XR_ITS ---
FINAL REPORT CLINICAL HISTORY: Shortness of breath and chest pain COMPARISON: None FINDINGS: The heart size is normal. The mediastinum is normal. There is no focal infiltrate or edema. There are no pleural effusions. There is no pneumothorax. There is no osseous abnormality. IMPRESSION: No acute cardiopulmonary process Reviewed, Interpreted and Dictated by Jefferson Lundberg MD Transcribed by Rhonda Suárez Authenticated and [facility]
[2022-10-09 11:14] LABS: Basophils % 0.5 % (0.1-2.0); Eosinophils # 0.1 K/mm3 (0.0-0.4); Eosinophils % 1.1 % (0.1-12.0); Hematocrit 42.2 % (37.0-47.0); Hemoglobin 13.7 g/dL (12.2-16.2); Lymphocytes # 2.2 K/mm3 (0.7-4.5); Lymphocytes % 35.1 % (10-50); Mean Corpuscular HGB Conc 32.5 g/dL (31.8-35.4); Mean Corpuscular Volume 95.4 fl (81-99); Mean Platelet Volume 7.9 fl (7.4-10.4); Monocytes # 0.3 K/mm3 (0.1-1.0); Monocytes % 5.3 % (1.7-9.3); Neutrophils # 3.7 K/mm3 (1.8-7.8); Neutrophils % 58.1 % (37.0-80.0); Platelet Count 364 K/mm3 (142-424); Red Blood Count 4.43 M/mm3 (4.20-5.40); Red Cell Distribution Width 13.7 % (11.5-17.5); White Blood Count 6.4 K/mm3 (4.8-10.8)
[2022-10-09 11:17] LABS: Alanine Aminotransferase 24 U/L (12-78); Albumin Level 4.4 g/dl (3.5-5.0); Albumin/Globulin Ratio 1.5 (1.1-1.8); Alkaline Phosphatase 68 U/L (38-126); Anion Gap 12.7 mEq/L (5-15); Aspartate Amino Transferase 32 U/L (14-36); Bilirubin,Total 0.5 mg/dl (0.2-1.3); Blood Urea Nitrogen 12 mg/dl (7-17); Calcium 9.2 mg/dl (8.4-10.2); Carbon Dioxide 29 mmol/L (22.0-30.0); Chloride 103 mmol/L (98-107); Creatinine Clearance Estimated 137 mL/min (50-200); Estimated Glomerular Filt Rate 106 ml/min (>60); GFR (African American) 129 ML/MIN (>60); Glucose 100 mg/dl (74-100); Lipase 46 U/L (23-300); Potassium 3.7 mmoL/L (3.5-5.1); Sodium 141 mmol/L (136-145); Total Protein,Serum 7.4 g/dl (6.3-8.2)
[2022-10-09 11:30] LABS: NT Pro Brain Natriuretic Pep. 229 pg/mL (0-125); Troponin I < 0.01 ng/ml (0.00-0.034)
[2022-10-09 11:34] LABS: Coronavirus 19, PCR Not Detected (NotDetected); Influenza A, PCR Not Detected (NotDetected); Influenza B, PCR Not Detected (NotDetected)
--- NOTE | 2022-10-09 11:40 | HMH.EDGENADL ---
Discharge Plan Disposition Patient Disposition: Home, Self-Care Condition: Good Prescriptions Prescriptions: No Action clonazepam 1 mg tablet 1 mg PO bupropion HCl 100 mg tablet sustained-release 12 hr 100 mg PO phentermine [Adipex-P] 37.5 mg tablet 37.5 mg PO DAILY Rx Instructions: must administer 30 minutes before or 1-2 hours after breakfast gabapentin 800 mg tablet 800 mg PO TID 30 Days Qty: 90 1RF Referrals Follow up/Referrals: Roman Graf MD [Staff Physician] - See instructions (outpatient cardiac workup) Activity Restrictions/Add. Instructions Additional Instructions/Restrictions: Follow-up with cardiology outpatient, information is here. Troponin and work-up today was negative. If you have any other concerning signs or symptoms, return to the ER for further evaluation. Clinical Impressions Clinical Impression: Chest pain Qualifiers: Chest pain type: unspecified Qualified Code(s): R07.9 - Chest pain, unspecified Discharge ED Provider: Farooq Bass General Adult HPI General Chief complaint: Chest Pain Stated complaint: chest pain Time Seen by Provider: 10/09/22 10:56 Mode of Arrival: Ambulatory Source of Information: Patient Limitations: No Limitations Description of Symptoms (Recalled from ER Triage Doc. by RN): Presents to ED with complaints of substernal chest pain that began wednesday night and has progressively gotten worse. Reports increased SOB and pain that radiates into her neck and bacl. Patient reports she thought it was gas so patient took tums and Pepto-Bismol with no relief. Denies cardiac hx History of Present Illness HPI narrative: This is a 47-year-old female with history of gastric sleeve remotely, osteoarthritis of the cervical spine, chronic neck and back pain, depression, anxiety, hyperlipidemia presenting with chest pain. Patient states that chest pain started 5 days prior to arrival. Initially associated with diarrhea, diaphoresis, shortness of breath. Since that time, it has improved. She now has intermittent, mild to moderate chest pains that start in her chest and radiates through to her back/left side of her neck. They are not constant, not exertional, made worse with lying flat. No associated cough, fevers, chills, nausea or vomiting, diaphoresis/dyspnea with these episodes of chest pain, recent travel, recent trauma, rash, or any other concerns. Nothing in particular makes it better other than sitting up Related Data Home Medications Medication Instructions Recorded Confirmed bupropion HCl 100 mg tablet,12 hr 100 mg PO 06/11/21 10/02/22 sustained-release clonazepam 1 mg tablet 1 mg PO 06/11/21 10/02/22 phentermine 37.5 mg tablet 37.5 mg PO DAILY 09/04/22 10/02/22 (Adipex-P) Previous Rx's Medication Instructions Recorded gabapentin 800 mg tablet 800 mg PO TID NEUROPATHY 30 days 10/16/19 #90 tabs Allergies Allergy/AdvReac Type Severity Reaction Status Date / Time silver Allergy Rash Verified 10/02/22 15:43 [From Tegaderm AG Mesh] [facility] Disclaimer: The information contained in this section may have been updated after the patient was seen, as this information can be updated by other users. Medical History Anxiety Depression Migraine Surgical History History of section History of cholecystectomy History of hysterectomy History of tubal ligation Social History Smoking Status: Never smoker alcohol intake: never substance use type: denies use current occupational status: other Travel in the last 8 weeks: None household members: family housing: house number of children: 3 current occupational exposures/hazards: No caffeine: No ROS Obtained: Yes All systems reviewed & no additional complaints except
--- NOTE | 2022-10-09 12:13 | PC.NURSE ---
CHECKED ON PT GAVE A FABIAN RALE, NOTHING ELSE NEEDED AT THIS TIME
--- NOTE | 2022-10-09 12:33 | PC.NURSE ---
Rounded on patient; call oneal within reach of patient
--- NOTE | 2022-10-09 14:48 | PC.NURSE ---
CHECKED ON PT NOTHING NEEDED, UPDATED PT THAT WE WERE WAITING FOR SECOND RESULTS OF TROPION RESULTS
[2022-10-09 15:13] LABS: Troponin I < 0.01 ng/ml (0.00-0.034)
== END 2022-10-09 15:37 | disposition home or self-care (01) ==
PROVIDERS: Emergency Provider Emergency Medicine; PCP Emergency Medicine
DX: R07.9 Chest pain, unspecified (principal); F41.9 Anxiety disorder, unspecified; F32.A Depression, unspecified
CPT/HCPCS: 71045; 80053; 83690; 83880; 84484; 85025; 87636; 93005; 99284; C9803; U0003; U0005

== ENCOUNTER 2025-04-06 09:49 | Emergency (ER) | payer SELFPAY ==
--- OUTSIDE RECORDS SUMMARY | 2025-02-20 09:00 | XMS_ITS | Encounter Summary ---
Author Organization [facility] Address [address] [place] [id number] Care Team Providers Care Nursing Care Attendant Name Role Phone Shandra Delarosa MD Primary Care Provider [phone] Reason for Visit * Reason Comments Chest Pain Pt states she is her e today for follow up chest pain. She states she still has pain on/off. No chest pain this wk but did have pain a couple wks ago. Stress is some better. She did also switch jobs. Encounter Details Date Type Department Care Team (Latest Contact Info) Description 02/20/2025 9:00 AM EST Office Visit [facility] CARDIOLOGY [address] [facility] [address] [place] [address] Gale Collado MD [address] [place] [address] Pure hypercholesterolemia (Primary Dx); Precordial chest pain; Pre-operative cardiovascular examination Social History Tobacco Use Types Packs/Day Years Used Date Smoking Tobacco: Never Passive Smoke Exposure: Never Smokeless Tobacco: Never Tobacco Cessation:Counseling Given: Yes Alcohol Use Standard Drinks/Week Comments No 0 (1 standard drink = 0.6 oz pur e alcohol) Comments No Sex and Gender Information Value Date Recorded Sex Assigned at Not on file Legal Sex Female 12:15 PM EST Gender Identity Not on file Sexual Orientation Not on file documented as of this encounter Last Filed Vital Signs Vital Sign Reading Time Taken Comments Blood Pressure 108/72 02/20/2025 9:15 AM EST Pulse 73 02/20/2025 9:15 AM EST Temperature - - Respiratory Rate - - Oxygen Saturation 99% 02/20/2025 9:15 AM EST Inhaled Oxygen Concentration - - Weight 74.4 kg (164 lb) 02/20/2025 9:15 AM EST Height 157.5 cm (5' 2 ) 02/20/2025 9:15 AM EST Body Mass Index 30 02/20/2025 9:15 AM EST documented in this encounter Progress Notes * Gale Collado MD - 02/20/2025 9:00 AM EST Images from the original note were not included. [facility] Provider Note Date: 02/20/2025 Name: Cynthia Cash : 1975 PCP: Shandra Delarosa MD Chief Complaint Patient presents with Chest Pain Pt states she is here today for follow up chest pain. She states she still has pain on/off. No chest pain this wk but did have pain a couple wks ago. Stress is some better. She did also switch jobs. Subjective Pt presents for a 2 month follow up with test results Stress testing reviewed with pt Chest pain is relayed as better. Off and on. Had a couple weeks ago. Stress has decreased. Changed jobs. Repatha use. No reported problems. Wants to talk about Zetia. States that still had muscle aches with this. Started taking 2-3 times a week and that did decrease the aches but still has.Wanting to know if can come off the Zetia. 02/20/2025 Updated with no new issues or concerns. 1. CTA 11/01/23 Moderate coronary calcification with an Agatston score = 125 using the AJ-130 method, which represents 98th percentile when matched for age, gender and ethnicity. Vascular age is 72 years. Three vessel non-obstructive (<30% stenosis) disease as described above. 2. Hyperlipidemia -Lpa 11/09/24 <8.4 -Zetia and repatha -Intolerant to atorvastatin Allergies Allergen Reactions Adhesive Tape Hives Blisters; patient allergic to clear surgical tape Atorvastatin Myalgia Silver Rash Current Outpatient Medications: buPROPion XL (WELLBUTRIN XL) 300 MG 24 hr tablet, Take 1 tablet by mouth Daily., Disp: , Rfl: Cholecalciferol 50 MCG (1999 UT) capsule, Take 1 capsule by mouth Daily., Disp: , Rfl: clonazePAM (KlonoPIN) 1 MG tablet, Take 1 tablet by mouth 2 (Two) Times a Day As Needed for Anxiety., Disp: , Rfl: cyanocobalamin 1000 MCG/ML injection, Inject 1 mL every month by subcutaneous route for 90 days., Disp: , Rfl: esomeprazole (nexIUM) 40 MG capsule, Take 1 capsule by mouth Daily., Disp: , Rfl: estradiol (ESTRACE) 1 MG tablet, Take 1 tablet by mouth Daily., Disp: , Rfl: Evolocumab (REPATHA) solution auto-injector SureClick injection, Inject 1 mL under the skin into the appropriate area as directed Every 14 (Fourteen) Days., Disp: 2 mL, Rfl: 5 ezetimibe (ZETIA) 10 MG tablet, Take 1 tablet by mouth Daily., Disp: 30 tablet, Rfl: 11 FLUoxetine (PROzac) 20 MG capsule, Take 1 capsule by mouth Daily., Disp: , Rfl: folic acid (FOLVITE) 400 MCG tablet, Take 1 tablet by mouth Daily., Disp: , Rfl: gabapentin (NEURONTIN) 800 MG tablet, Take 1 tablet by mouth 2 (Two) Times a Day., Disp: , Rfl: 1 meloxicam (MOBIC) 7.5 MG tablet, Take 1 tablet by mouth 2 (Two) Times a Day As Needed. for pain, Disp: , Rfl: oxyCODONE-acetaminophen (PERCOCET) 7.5-325 MG per tablet, Take 1 tablet by mouth 3 (Three) Times a Day., Disp: , Rfl: spironolactone (ALDACTONE) 25 MG tablet, take 1 tablet orally daily (Patient taking differently: prn), Disp: , Rfl: Ubrelvy 100 MG tablet, Take 1 tablet by mouth As Needed., Disp: , Rfl: valACYclovir (VALTREX) 1000 MG tablet, Take 1 tablet by mouth 3 times a day., Disp: , Rfl: Past Medical History: Diagnosis Date Anxiety Arthritis Bipolar affective disorder DDD (degenerative disc disease), lumbar Depression GERD (gastroesophageal reflux disease) Headache Hyperlipidemia Migraines Sciatic nerve pain, right right leg Past Surgical History: Procedure Laterality Date SECTION CHOLECYSTECTOMY ENDOSCOPY GASTRIC SLEEVE LAPAROSCOPIC 2016 GASTROSTOMY TOTAL ABDOMINAL HYSTERECTOMY TUBAL ABDOMINAL LIGATION Family History Problem Relation Name Age of Onset Anxiety disorder Mother did not raise her, does not know well Heart attack Father Hypertension Father Cancer Father Coronary artery disease Sister 43 Coronary artery disease Paternal Grandfather 40 Social History Socioeconomic History Marital status: Other Tobacco Use Smoking status: Never Passive exposure: Never Smokeless tobacco: Never Vaping Use Vaping status: Never Used Substance and Sexual Activity Alcohol use: No Drug use: No Sexual activity: Defer Objective Vital Signs: BP 108/72 (BP Location: Right arm, Patient Position: Sitting, Cuff Size: Adult) Pulse 73 Ht 157.5 cm (62 ) Wt 74.4 kg (164 lb) SpO2 99% BMI 30.00 kg/m?? Estimated body mass index is 30 kg/m?? as calculated from the following: Height as of this encounter: 157.5 cm (62 ). Weight as of this encounter: 74.4 kg (164 lb). Physical Exam Constitutional: Appearance: Normal appearance. She is well-developed. HENT: Head: Normocephalic and atraumatic. Eyes: General: No scleral icterus. Pupils: Pupils are equal, round, and reactive to light. Cardiovascular: Rate and Rhythm: Normal rate and regular rhythm. Heart sounds: Normal heart sounds. No murmur heard. Pulmonary: Breath sounds: Normal breath sounds. No wheezing or rhonchi. Musculoskeletal: Right lower leg: No edema. Left lower leg: No edema. Skin: Capillary Refill: Capillary refill takes less than 2 seconds. Coloration: Skin is not cyanotic. Nails: There is no clubbing. Neurological: Mental Status: She is alert and oriented to person, place, and time. Motor: No weakness. Gait: Gait normal. Psychiatric: Mood and Affect: Mood normal. Behavior: Behavior is cooperative. Thought Content: Thought content normal. Assessment and Plan ASSESSMENTS AND ORDERS Diagnoses and all orders for this visit: 1. Pure hypercholesterolemia (Primary) - Lipid Panel; Future - Comprehensive Metabolic Panel; Future 2. Precordial chest pain 3. Pre-operative cardiovascular examination PLAN: -reviewed stress test -chest pain is much more stable and feel like its noncardiac -need to check cholesterol -having some muscle aches with zetia, so will likely have to stop it if cholesterol is acceptable, other option is taking it a few times a week. -knee surgery scheduled in june, given good stress test I think she should be able to proceed. Follow Up Return in about 6 months (around 08/20/2025) for Next scheduled follow up. Fabienne Collado MD Cardiology and Sleep [facility] 02/20/2025 Please note that this explicitly excludes time spent on other separate billable services such as performing procedures or test interpretation, when applicable. Please note that portions of this note were completed with a voice recognition program. documented in this encounter Plan of Treatment Upcoming Encounters Date Type Department Care Team (Late st Contact Info) Description 08/22/2025 3:30 PM EDT Office Visit [facility] CARDIOLOG[facility] [address] [place], [place] [address] Gale Collado MD [address] [place] [address] documented as of this encounter Results * Comprehensive Metabolic Panel (02/20/2025 10:11 AM EST) Glucose 71 65 - 99 mg/dL 02/21/2025 12:45 AM EST [facility] BUN 15.0 6.0 - 20.0 mg/dL 02/21/2025 12:45 AM EST [facility] Creatinine 0.92 0.57 - 1.00 mg/dL 02/21/2025 12:45 AM EST [facility] Sodium 138 136 - 145 mmol/L 02/21/2025 12:45 AM EST [facility] Potassium 4.4 3.5 - 5.2 mmol/L 02/21/2025 12:45 AM EST [facility] Chloride 103 98 - 107 mmol/L 02/21/2025 12:45 AM EST [facility] CO2 24.7 22.0 - 29.0 mmol/L 02/21/2025 12:45 AM EST [facility] Calcium 9.6 8.6 - 10.5 mg/dL 02/21/2025 12:45 AM EST [facility] Total Protein 6.9 6.0 - 8.5 g/dL 02/21/2025 12:45 AM EST [facility] Albumin 4.1 3.5 - 5.2 g/dL 02/21/2025 12:45 AM [facility] ALT (SGPT) 15 1 - 33 U/L 02/21/2025 12:45 AM [facility] AST (SGOT) 22 1 - 32 U/L 02/21/2025 12:45 AM [facility] Alkaline Phosphatase 76 39 - 117 U/L 02/21/2025 12:45 AM [facility] Total Bilirubin 0.5 0.0 - 1.2 mg/dL 02/21/2025 12:45 AM [facility] Globulin 2.8 gm/dL 02/21/2025 12:45 AM [facility] A/G Ratio 1.5 g/dL 02/21/2025 12:45 AM [facility] BUN/Creatinine Ratio 16.3 7.0 - 25.0 02/21/2025 12:45 AM [facility] Anion Gap 10.3 5.0 - 15.0 mmol/L 02/21/2025 12:45 AM [facility] eGFR 75.5 >60.0 mL/min/1.7 3 02/21/2025 12:45 AM [facility] Blood Venipuncture / Unknown 02/20/2025 10:11 AM EST 02/20/2025 10:11 AM [facility] - 02/21/2025 12:45 AM EST GFR Categories in Chronic Kidney Disease (CKD) GFR Category GFR (mL/min/1.73) Interpretation G1 90 or greater Normal or high (1) G2 60-89 Mild decrease (1) G3a 45-59 Mild to moderate decrease G3b 30-44 Moderate to severe decrease G4 15-29 Severe decrease G5 14 or less Kidney failure (1)In the absence of evidence of kidney disease, neither GFR category G1 or G2 fulfill the criteria for CKD. eGFR calculation 2020 CKD-EPI creatinine equation, which does not include race as a factor us Gale Collado MD LAB BLOOD ORDERABLES Final R esult [facility]
[address] [place] [address], * (ABNORMAL) Lipid Panel (02/20/2025 10:11 AM EST) Total Cholesterol 175 0 - 200 mg/dL 02/21/2025 12:45 AM EST [facility] Triglycerides 83 0 - 150 mg/dL 02/21/2025 12:45 AM EST [facility] HDL Cholesterol 68(H) 40 - 60 mg/dL 02/21/2025 12:45 AM EST [facility] LDL Cholesterol 92 0 - 100 mg/dL 02/21/2025 12:45 AM EST [facility] VLDL Cholesterol 15 5 - 40 mg/dL 02/21/2025 12:45 AM EST [facility] LDL/HDL Ratio 1.33 02/21/2025 12:45 AM EST [facility] Blood Venipuncture / Unknown 02/20/2025 10:11 AM EST 02/20/2025 10:11 AM EST [facility] - 02/21/2025 12:45 AM EST Cholesterol Reference Ranges (U.S. Department of Health and Human Services ATP III Classifications) Desirable <200 mg/dL Borderline High 200-239 mg/dL High Risk >240 mg/dL Triglyceride Reference Ranges (U.S. Department of Health and Human Services ATP III Classifications) Normal <150 mg/dL Borderline High 150-199 mg/dL High 200-499 mg/dL Very High >500 mg/dL HDL Reference Ranges (U.S. Department of Health and Human Services ATP III Classifications) Low <40 mg/dl (major risk factor for CHD) High >60 mg/dl ('negative' risk factor for CHD) LDL Reference Ranges (U.S. Department of Health and Human Services ATP III Classifications) Optimal <100 mg/dL Near Optimal 100-129 mg/dL Borderline High 130-159 mg/dL High 160-189 mg/dL Very High >189 mg/dL LDL is calculated using the NIH LDL-C calculation. Gale Collado MD LAB BLOOD ORDERABLES Final R esult [facility]
[address] [place] [address], documented in this encounter Visit Diagnoses Diagnosis Pure hypercholesterolemia- Primary Precordial chest pain Precordial pain Pre-operative cardiovascular examination documented in this encounter Care Teams Nursing Care Attendant Relationship Specialty Start Date End Date Shandra Delarosa MD [address] [place] [address] PCP - General Emergency Medicine 01/07/23 documented as of this encounter
--- OUTSIDE RECORDS SUMMARY | 2025-02-20 10:20 | XMS_ITS | Encounter Summary ---
[facility] Address [address] [place] [address] Care Team Providers Care Upsetter Name Role Phone Shandra Delarosa MD Primary Care Provider [phone] Encounter Details Date Type Department Care Team (Late st Contact Info) Description 02/20/2025 10:20 AM EST Lab [facility] [place] [address] [facility] [address] [place] [address] Pure hypercholesterolemia Social History Tobacco Use Types Packs/Day Years Used Date Smoking Tobacco: Never Passive Smoke Exposure: Never Smokeless Tobacco: Never Alcohol Use Standard Drinks/Week Comments No 0 (1 standard drink = 0.6 oz pur e alcohol) Comments No Sex and Gender Information Value Date Recorded Sex Assigned at Not on file Legal Sex Female 12:15 PM EST Gender Identity Not on file Sexual Orientation Not on file documented as of this encounter Plan of Treatment Upcoming Encounters Date Type Department Care Team (Late st Contact Info) Description 08/22/2025 3:30 PM EDT Office Visit [facility] CARDIOLOGY [address] [place] [address] Gale Collado MD [address] [place] [address] documented as of this encounter Procedures Procedure Name Priority Date/Time Associated Diagnosis Comments LIPID PANEL Routine 02/20/2025 10:11 AM EST Pure hypercholesterolemia COMPREHENSIVE METABOLIC PANEL Routine 02/20/2025 10:11 AM EST Pure hypercholesterolemia documented in this encounter Results * Comprehensive Metabolic Panel (02/20/2025 10:11 AM [facility] Glucose 71 65 - 99 mg/dL 02/21/2025 12:45 AM [facility] BUN 15.0 6.0 - 20.0 mg/dL 02/21/2025 12:45 AM [facility] Creatinine 0.92 0.57 - 1.00 mg/dL 02/21/2025 12:45 AM [facility] Sodium 138 136 - 145 mmol/L 02/21/2025 12:45 AM [facility] Potassium 4.4 3.5 - 5.2 mmol/L 02/21/2025 12:45 AM [facility] Chloride 103 98 - 107 mmol/L 02/21/2025 12:45 AM [facility] CO2 24.7 22.0 - 29.0 mmol/L 02/21/2025 12:45 AM [facility] Calcium 9.6 8.6 - 10.5 mg/dL 02/21/2025 12:45 AM [facility] Total Protein 6.9 6.0 - 8.5 g/dL 02/21/2025 12:45 AM [facility] Albumin 4.1 3.5 - 5.2 g/dL 02/21/2025 12:45 AM [facility] ALT (SGPT) 15 1 - 33 U/L 02/21/2025 12:45 AM [facility] AST (SGOT) 22 1 - 32 U/L 02/21/2025 12:45 AM [facility] Alkaline Phosphatase 76 39 - 117 U/L 02/21/2025 12:45 AM [facility] Total Bilirubin 0.5 0.0 - 1.2 mg/dL 02/21/2025 12:45 AM [facility] Globulin 2.8 gm/dL 02/21/2025 12:45 AM [facility] A/G Ratio 1.5 g/dL 02/21/2025 12:45 AM [facility] BUN/Creatinine Ratio 16.3 7.0 - 25.0 02/21/2025 12:45 AM EST [facility] Anion Gap 10.3 5.0 - 15.0 mmol/L 02/21/2025 12:45 AM EST [facility] eGFR 75.5 >60.0 mL/min/1.7 3 02/21/2025 12:45 AM EST [facility] Blood Venipuncture / Unknown 02/20/2025 10:11 AM EST 02/20/2025 10:11 AM EST [facility] - 02/21/2025 12:45 AM EST GFR [...] ORDERABLES Final R esult [facility]
[address] [place] [address], * (ABNORMAL) Lipid Panel (02/20/2025 10:11 AM EST) Total Cholesterol 175 0 - 200 mg/dL 02/21/2025 12:45 AM EST [facility] Triglycerides 83 0 - 150 mg/dL 02/21/2025 12:45 AM EST [facility] HDL Cholesterol 68(H) 40 - 60 mg/dL 02/21/2025 12:45 AM EST [facility] LDL Cholesterol 92 0 - 100 mg/dL 02/21/2025 12:45 AM EST [facility] VLDL Cholesterol 15 5 - 40 mg/dL 02/21/2025 12:45 AM EST [facility] LDL/HDL Ratio 1.33 02/21/2025 12:45 AM EST [facility] Blood Venipuncture / Unknown 02/20/2025 10:11 AM EST 02/20/2025 10:11 AM EST Narrative [facility] - 02/21/2025 12:45 AM EST Cholesterol [...] is calculated using the NIH LDL-C calculation. us Gale Collado MD LAB BLOOD ORDERABLES Final R esult [facility]
[address] [place] [address], documented in this encounter Visit Diagnoses Diagnosis Pure hypercholesterolemia documented in this encounter Care Teams Upsetter Relationship Specialty Start Date End Date Shandra Delarosa MD [address] [place] [address] PCP - General Emergency Medicine 01/07/23 documented as of this encounter
--- OUTSIDE RECORDS SUMMARY | 2025-02-26 06:44 | XMS_ITS | Continuity of Care Document ---
Author Organization [facility] Phone Care Team Providers Care Screen Making Supervisor Name Role Phone CAPO COONEY Unavailable CAPO COONEY Primary Attending ROSITA BARRETT Primary Care CAPO COONEY Admitting ALLERGIES AND ADVERSE REACTIONS ALLERGIES AND ADVERSE REACTIONS Code System Allergy Substance Adverse Reaction Date Reaction (Severity) [place] [id number] RXNorm Atorvastatin Adverse reaction to substance NO INFO active [id number] on December 04, 2024 1:53:12 PM [place] [id number] SNOMED CT Silver Adverse reaction to substance NO INFO active [id number] on December 04, 2024 1:53:12 PM UTC adhesive tape (Free Text Allergy) Adverse reaction to substance NO INFO active [id number] on December 04, 2024 1:53:12 PM UTC RESULTS Patient: EMY Chaidez Date of : 1975 LABORATORY RESULTS Information is not available LABORATORY NARRATIVE RESULTS Information is not available RADIOLOGY RESULTS ORDER 100: EFREN SCREEN MAMMO W CAD BILAT (LOINC: 38676-3) ORDER DATE: February 20, 2025 8:10:00 PM UT PERFORMING LAB: [address] [id number] Final Result Date: February 20, 2025 8:31:00 PM UTC [address] [place] [address] Name: MAGDALENA QUEVEDO Exam Date: 02/20/2025 : 1975 Age 49 years Gender: F Physician: CAPO COONEY Facility: PSYCHIATRIC Facility HSV: Outpatient Exam: EFREN SCREEN MAMMO W CAD BILAT Exam: 3-D screening mammography including tomosynthesis and CAD (Computer Assisted Detection). Clinical indication: Asymptomatic screening exam Comparison: Exams to 2013 TECHNIQUE: Routine bilateral 2D screening mammogram with CC and MLO views obtained. 3-D tomosynthesis and Computer assisted detection were utilized for this exam. BREAST DENSITY: The breasts are heterogeneously dense, which may obscure small masses FINDINGS: No suspicious mass, architectural distortion, or suspicious calcifications are present. IMPRESSION: No evidence of malignancy in either breast Recommendation: Annual screening mammography recommended in one year The results of this report will be communicated to the patient by letter in layman's terms. ACR BI-RADS: BI-RADS assessment category 1: Negative mammogram Mammography does not detect approximately 10-15% of breast cancers. A normal mammogram does not exclude breast cancer in a patient with palpable mass or abnormal findings on physical examination. These patients may need biopsies and when clinically indicated a biopsy should not be postponed because of a normal mammogram. If the patient has breast surgery or biopsy, FDA/SA Regulatory Guidelines mandate that this facility receive pathologic results for follow-up correlation. Electronically signed by: Bear Guzman MD 02/20/2025 05:14 PM [facility] Dictated By: Bear Guzman Transcribed By: Transcribed On: 02/20/2025 3:31 PM Electronically signed by: Bear Guzman 02/20/2025 Thank you for referring QUEVEDO, MAGDALENA to [facility]. Legally authenticated by VILMA CAMPOS MD 2025-02-20 15:31:00 PATHOLOGY NARRATIVE RESULTS Information is not available MICROBIOLOGY RESULTS No Micro Labs/Results Exist for Patient BLOOD ADMIN RESULTS Information is not available MEDICATIONS HOME MEDICATIONS Status RXNORM NDC Medication Dose Route Frequency Dates Comments Reported By Updated By Drug Treatment Unknown DISCHARGE MEDICATIONS Status RXNORM NDC Medication Dose Route Frequency Dates Dis pense Data Comments Physician Updated By No Discharge Medication Info rmation Available INPATIENT MEDICATIONS Status RXNORM NDC Medication Dose Route Frequency Rat e Quantity Dates Indication Dispense Data Comments Physician Updated By No Inpatient Medication Info rmation Available SOCIAL HISTORY SOCIAL HISTORY - Smoking Status SNOMED-CT Social History Element Description Effective Dates Offered Cessation Comment Updated By [id number] Historical Tobacco smoking status Never Smoked [id number] on December 03, 2024 5:08:01 PM [facility] [id number] Historical Tobacco smoking status Former Smoker [id number] on October 19, 2024 6:58:47 PM [facility] [id number] Historical Tobacco smoking status Unknown If Ever Smoked SOCIAL HISTORY - Gender Sex: Female SOCIAL HISTORY - Status : status i nformation is not available Intention in Next Year: intention information is not available SOCIAL HISTORY - Assessments Code System Description Status Date Value of Assessment Updated By Comment Assessment Information is no t available SOCIAL HISTORY - [place] Affiliation [place] information is not av ailable SOCIAL HISTORY - Legal Sex Legal Sex information is not available SOCIAL HISTORY - Sexual Behavior Sexual Orientation Gender Identity SNOMED-CT Description SNO MED -CT Description Activity Level No of Partners Partner Type UpdatedBy Information is not available SOCIAL HISTORY - Occupation Occupation information is no t available HEALTH CONCERNS Problems Concern Status Health Concern problem infor mation not available. Smoking Status Status Years Used Consumed packs p er day Health Concern smoking histo ry information not available. Family History Concern Status Health Concern family histor y information not available. ENCOUNTERS ENCOUNTER INFORMATION Reason for Visit SCREENING MAMMOGRAM Admission February 20, 2025 8:02:[address] [address] Discharge February 21, 2025 8:02:00 AM [facility] DISCHARGED TO HOME OR SELF CARE ENCOUNTER DIAGNOSES Notes information is not cade ilable. Code System Diagnosis Onset Date Diagnosis information is not available. ABSTRACT DIAGNOSES Code System Diagnosis Updated By Abatement Date Z12.31 ICD10 ENCOUNTER FOR SC REENING MAMMOGRAM FOR MALIGNANT NEOPLASM OF BREAST [id number] on February 04, 2025 4:30:16 PM [facility] Z12.31 ICD10 ENCOUNTER FOR SC REENING MAMMOGRAM FOR MALIGNANT NEOPLASM OF BREAST [id number] on February 26, 2025 11:44:02 AM [facility] CARE TEAM Care Screen Making Supervisor Role CAPO COONEY Referring CAPO COONEY Primary Attending ROSITA BARRETT Primary Care CAPO COONEY Admitting CARE TEAM CARE stable manager Role on Team Location Telecom Status Start Date End Ulices e Updated By NENA CUMMINSP PCP normal February 04, 2025 4:30:16 PM [place] February 21, 2025 8:02:00 AM [facility] [id number] on February 04, 2025 4:30:16 PM [facility] EROS Killian Referring normal February 04, 2025 4:30:16 PM [facility] February 21, 2025 8:02:00 AM [facility] [id number] on February 04, 2025 4:30:16 PM [facility] EROS Killian Attending normal February 04, 2025 4:30:16 PM [facility] February 21, 2025 8:02:00 AM [facility] [id number] on February 04, 2025 4:30:16 PM [facility] EROS Killian Admitting normal February 04, 2025 4:30:16 PM [facility] February 21, 2025 8:02:00 AM [facility] [id number] on February 04, 2025 4:30:16 PM [facility]
--- OUTSIDE RECORDS SUMMARY | 2025-03-22 01:44 | XMS_ITS | Continuity of Care Document ---
Author Organization [facility] Phone Care Team Providers Care Elementary Educator Name Role Phone MANJEETDeysi ROSITA Fairchild Primary Care MATTHEW VALDEZ Admitting MATTHEW VALDEZ Primary Attending MATTHEW VALDEZ Unavailable ALLERGIES AND ADVERSE REACTIONS ALLERGIES AND ADVERSE REACTIONS Code System Allergy Substance Adverse Reaction Date Reaction (Severity) Comment [place] [id number] RXNorm Atorvastatin Adverse reaction to substance NO INFO active [id number] on March 20, 2025 2:15:29 PM [place] [id number] SNOMED CT Silver Adverse reaction to substance NO INFO active [id number] on March 20, 2025 2:15:29 PM UT adhesive tape (Free Text Allergy) Adverse reaction to substance NO INFO active [id number] on March 20, 2025 2:15:27 PM [place] MEDICATIONS HOME MEDICATIONS Status RXNORM [facility] Medication Dose Route Frequency Dates Comments Reported By Updated By Active FreeT extMe d Klonopin oral 0.0 BEDTIME Last Dose: [id number] on March 20, 2025 2:15:28 PM UTC Active FreeT extMe d gabapentin oral 0.0 BEDTIME Last Dose: [id number] on March 20, 2025 2:15:29 PM UTC Active FreeT extMe d Prozac oral 0.0 DAILY Last Dose: [id number] on March 20, 2025 2:15:29 PM UTC Active FreeT extMe d bupropion HCl oral 0.0 DAILY Last Dose: [id number] on March 20, 2025 2:15:29 PM UT Active [id number] 00273 0 Percocet 5-325 mg tablet 1.0 TAB ORAL Q6HPRN Last Dose: [id number] on March 20, 2025 2:15:29 PM UT DISCHARGE MEDICATIONS Status RXNORM NDC Medication Dose Route Frequency Dates Dis pense Data Comments Physician Updated By No Discharge Medication Info rmation Available INPATIENT MEDICATIONS Status RXNORM NDC Medication Dose Route Frequency Rat e Quantity Dates Indication Dispense Data Comments Physician Updated By [facility] [id number] ondansetron (ZOFRAN) 4 MG TBDP 4.0 MG ORAL ONE TIME ONLY Start: [facility] er 2024 2:19:0 0 PM UT End: [facility] er 2024 2:19:0 0 PM UT Fill Status = Completed , Repeat Number = 0, Quantity = 1.000 JOSÉ MIGUEL Santoyo MD INTERFAC ED on March 20, 2025 2:19:00 PM [facility] [id number] 911 dicyclomine (BENTYL) 10 MG CAPS 10.0 MG ORAL ONE TIME ONLY Start: [facility] er 2024 2:43:0 0 PM UTC End: [facility] er 2024 2:43:0 0 PM UT Fill Status = Completed , Repeat Number = 0, Quantity = 2.000 JOSÉ MIGUEL Santoyo MD INTERFAC ED on March 20, 2025 2:41:00 PM [facility] SOCIAL HISTORY SOCIAL HISTORY - Smoking Status SNOMED-CT Social History Element Description Effective Dates Offered Cessation Comment Updated By [id number] Current Tobacco smoking status Never Smoked [id number] on March 20, 2025 2:16:03 PM [facility] [id number] Historical Tobacco smoking status Former Smoker [id number] on October 19, 2024 6:58:47 PM [facility] [id number] Historical Tobacco smoking status Unknown If Ever Smoked SOCIAL HISTORY - Gender Sex: Female SOCIAL HISTORY - Status : status i nformation is not available Intention in Next Year: intention information is not available SOCIAL HISTORY - Assessments Code System Description Status Date Value of Assessment Updated By Comment Assessment Information is no t available SOCIAL HISTORY - [place] Affiliation [place] information is not av ailable SOCIAL HISTORY - Legal Sex Legal Sex : Female (finding) SOCIAL HISTORY - Sexual Behavior Sexual Orientation Gender Identity SNOMED-CT Description SNO MED -CT Description Activity Level No of Partners Partner Type UpdatedBy Information is not available SOCIAL HISTORY - Occupation Occupation information is no t available VITAL SIGNS PATIENT VITAL SIGNS This section displays the mo st recent value for each vital sign as of March 22, 2025 6:44:32 AM UTC Loinc Code Vital Sign Activity Date Result Updated By 8310-5 Body temperature March 20 2:08:35 PM UTC 98.4 [degF] [id number] on March 21, 2025 3:30:51 PM UTC 10809-8 Body weight Measured March 20, 2025 2:11:20 PM UTC 76.0 kg (168.0 lb) [id number] on March 20, 2025 2:11:20 PM UTC 8462-4 Diastolic blood pressure March 20, 2025 3:22:58 PM UTC 84.0 mm[Hg] [id number] on March 21, 2025 3:30:52 PM UTC 8867-4 Heart rate March 20, 2025 3:22:58 PM UTC 77 /min [id number] on March 21, 2025 3:30:52 PM UTC 69016-3 Oxygen saturation in Arterial blood by Pulse oximetry March 20, 2025 3:22:58 PM UTC 99.0 % [id number] on March 21, 2025 3:30:52 PM UTC 9279-1 Respiratory rate March 20 3:22:58 PM UTC 18 /min [id number] on March 21, 2025 3:30:52 PM UTC 8480-6 Systolic blood pressure March 20, 2025 3:22:58 PM UTC 132.0 mm[Hg] [id number] on March 21, 2025 3:30:52 PM UT PEDIATRIC GROWTH CHART - VITAL SIGNS This section displays Head C ircumference Percentile, Weight for Length Percentile and BMI Percentile Loinc Code Pediatric Measure Age (Months) Result Updat ed By No Pediatric Growth Chart Pe rcentile Information Available. ENCOUNTERS ENCOUNTER INFORMATION Reason for Visit VOMITING Admission March 20, 2025 1:58:00 PM UTC [address] [address] Discharge March 20, 2025 3:30:00 PM UT DISCHARGED TO HOME OR SELF CARE ENCOUNTER DIAGNOSES Notes information is not cade ilable. Code System Diagnosis Onset Date Diagnosis information is not available. ABSTRACT DIAGNOSES Code System Diagnosis Updated By Abatement Date R11.2 ICD10 NAUSEA WITH VOMI TING, UNSPECIFIED [id number] on March 22, 2025 6:43:20 AM UT R10.30 ICD10 LOWER ABDOMINAL PAIN, UNSPECIFIED [id number] on March 22, 2025 6:43:20 AM [facility] R10.10 ICD10 UPPER ABDOMINAL PAIN, UNSPECIFIED [id number] on March 22, 2025 6:43:20 AM [facility] R61 ICD10 GENERALIZED HYPERHIDROSIS BI L3519 on March 22, 2025 6:43:20 AM [facility] R11.10 ICD10 VOMITING, UNSPECIFIED [id number] on March 22, 2025 6:43:20 AM [facility] G43.909 ICD10 MIGRAINE, UNSPEC IFIED, NOT INTRACTABLE, WITHOUT STATUS MIGRAINOSUS [id number] on March 22, 2025 6:43:20 AM [facility] F41.9 ICD10 ANXIETY DISORDER, UNSPECIFIE D [id number] on March 22, 2025 6:43:20 AM [facility] F32.A ICD10 DEPRESSION, UNSPECIFIED [id number] on March 22, 2025 6:43:20 AM [facility] Z79.899 ICD10 OTHER ACTIVITY MANAGER (CURRENT) DRUG THERAPY [id number] on March 22, 2025 6:43:20 AM [facility] Z88.8 ICD10 ALLERGY STATUS T O OTHER DRUGS, MEDICAMENTS AND BIOLOGICAL SUBSTANCES [id number] on March 22, 2025 6:43:20 AM [facility] CARE TEAM Care Elementary Educator Role [facility] Primary Care MATTHEW VALDEZ Admitting MATTHEW VALDEZ Primary Attending MATTHEW VALDEZ Referring CARE TEAM CARE security test engineer Role on Team Location Telecom Status Start Date End Ulices e Updated By JOSÉ MIGUEL Santoyo MD, MD Referring [address] [place] [address], [address] [phone] normal March 20, 2025 2:32:06 PM [facility] March 20, 2025 3:30:00 PM [facility] [id number] on March 20, 2025 2:32:06 PM [facility] JOSÉ MIGUEL Santoyo MD, MD Attending [address] [place] [address], [address] [phone] normal March 20, 2025 2:32:06 PM [facility] March 20, 2025 3:30:00 PM [facility] [id number] on March 20, 2025 2:32:06 PM [place] JOSÉ MIGUEL Santoyo MD, MD Admitting [address], [place], [address] [phone] normal March 20, 2025 2:32:06 PM UT March 20, 2025 3:30:00 PM [facility] [id number] on March 20, 2025 2:32:06 PM [place] NENA CUMMINS[address], [facility] normal March 20, 2025 1:59:20 PM UT March 20, 2025 3:30:00 PM [facility] [id number] on March 20, 2025 2:32:06 PM [facility] INSURANCE PROVIDERS INSURANCE PROVIDER Coverage Status - Effective Date Coverage Type Payor Plan Order Relationship To Subscriber Insurance Plan No Insurance Plan 2024-04-19 W PRIMARY 18 [id number] [facility] [place]
[2025-04-06 09:52] VITALS: BP 145/87; PULSE 87; RESP 19; TEMP 36.5; O2SAT 97; BMI 31.1
[2025-04-06 09:56] VITALS: BP 145/87; PULSE 90; O2SAT 97
[2025-04-06 10:00] VITALS: BP 127/88; PULSE 85; O2SAT 98
--- OUTSIDE RECORDS SUMMARY | 2025-04-06 10:01 | XMS_ITS | Encounter Summary ---
[facility] Address [address] [place] [id number] Care Team Providers Care Senior Bioinformatics Scientist Name Role Phone Shandra Delarosa MD Primary Care Provider [phone] Encounter Details Date Type Department Care Team (Late st Contact Info) Description 02/21/2025 Results Follow-Up [facility] [address] [facility] [address] [place] [address] Gale Collado MD [address] [place] [address] Social History Tobacco Use Types Packs/Day Years [...] on file documented as of this encounter Miscellaneous Notes * Telephone Encounter - Bernarda Nguyen MA - 02/23/2025 1:43 PM EST Spoke to patient, patient understood and will keep May follow up. * Telephone Encounter - Bernarda Nguyen MA - 02/23/2025 12:24 PM EST LVM for patient to return call for results. documented in this encounter Plan of Treatment Upcoming Encounters Date Type Department Care Team (Late st Contact Info) Description 08/22/2025 3:30 PM EDT Office Visit [facility] [address] [place] [address] Gale Collado MD [address] [place] [address] documented as of this encounter Visit Diagnoses Not on filedocumented in this encounter Care Teams Senior Bioinformatics Scientist Relationship Specialty Start Date End Date Shandra Delarosa MD [address] [place] [address] PCP - General Emergency Medicine 01/07/23 documented as of this encounter
--- OUTSIDE RECORDS SUMMARY | 2025-04-06 10:01 | XMS_ITS | Encounter Summary ---
[facility] Address [address] [place] [address] Care Team Providers Care Bill Board Poster Name Role Phone Shandra Delarosa MD Primary Care Provider [phone] Encounter Details Date Type Department Care Team (Latest Contact Info) Description 02/20/2025 Travel Social History Tobacco Use Types Packs/Day Years [...] Description 08/22/2025 3:30 PM EDT Office Visit [facility] [address] [place] [address] Gale Collado MD [address] [place] [address] documented as of this encounter Visit Diagnoses Not on filedocumented in this encounter Care Teams Bill Board Poster Relationship Specialty Start Date End Date Shandra Delarosa MD [address] [place] [address] PCP - General Emergency Medicine 01/07/23 documented as of this encounter
--- OUTSIDE RECORDS SUMMARY | 2025-04-06 10:01 | XMS_ITS | Encounter Summary ---
Author Organization [facility] Address [address] [place] [address] Care Team Providers Care Camera Repairman Name Role Phone Shandra Delarosa MD Primary Care Provider [phone] Reason for Visit * Reason Onset Date Comments DR. PAIGE ROSALES 02/06/2025 Encounter Details Date Type Department Care Team (Late st Contact Info) Description 02/06/[address] [facility] [address] [place] [address] Gale Collado MD [address] [place] [address] DR. PAIGE ROSALES Social History Tobacco Use Types Packs/Day Years [...] encounter Miscellaneous Notes * Telephone Encounter - Lacie Severino RegSched Rep - 02/07/2025 8:54 AM EDT Spoke w/ patient. Rescheduled her FU and relayed message regarding testing. * Telephone Encounter - Dory John MA - 02/07/2025 8:22 AM EDT Left voicemail for patient to return our call to the office. * Telephone Encounter - Bernarda Nguyen MA - 02/06/2025 3:10 PM EDT LVM for patient to call back. * Telephone Encounter - Nargis Edwards MA - 02/06/2025 1:07 PM EDT I checked with Dr. Collado. Pt does not need any testing before appt. Follow up appt just needs to be rescheduled. * Telephone Encounter - Dory John MA - 02/06/2025 11:46 AM EDT Lvm for patient to contact the office. * Telephone Encounter - Clem Trinidad RegSched Rep - 02/06/2025 10:28 AM EDT Caller: Cynthia Cash Relationship: Self Best call back number: [phone] (home) What is the best time to reach you: ANY Who are you requesting to speak with (clinical staff, provider, specific staff member): CLINICAL What was the call regarding: PT WOULD LIKE A CALL TO DISCUSS ORDERS SHE HAS ON FILE AND WHAT SHE NEEDS TO DO BEFORE SCHEDULING NEXT FU APPT. PLEASE CALL PT WHEN AVAILABLE. documented in this encounter Plan of Treatment Upcoming Encounters Date Type Department Care Team (Late st Contact Info) Description 08/22/2025 3:30 PM EDT Office Visit [facility] [address] [place] [address] Gale Collado MD [address] [place] [address] documented as of this encounter Visit Diagnoses Not on filedocumented in this encounter Care Teams Camera Repairman Relationship Specialty Start Date End Date Shandra Delarosa MD [address] [facility] [address] [place] [address] PCP - General Emergency Medicine 01/07/23 documented as of this encounter
--- OUTSIDE RECORDS SUMMARY | 2025-04-06 10:01 | XMS_ITS | Clinical Summary ---
Author Organization [facility] Address [address] [place] [address] Care Team Providers Care Seed Trucker Name Role Phone Shandra Delarosa MD Primary Care Provider Allergies Active Allergy Reactions Criticality Noted Date Comments Adhesive Tape Hives High 09/06/2024 Blisters; patient allergic to clear surgical tape Atorvastatin Myalgia Medium 06/19/2024 Silver Rash Low 10/02/2022 Medications gabapentin (NEURONTIN) 800 MG tablet Take 1 tablet by mouth 2 (Two) Times a Day. 1 018 Active buPROPion XL (WELLBUTRIN XL) 300 MG 24 hr tablet Take 1 tablet by mouth Daily. 024 Active oxyCODONE-acetaminophen (PERCOCET) 7.5-325 MG per tablet Take 1 tablet by mouth 3 (Three) Times a Day. 024 Active Ubrelvy 100 MG tablet Take 1 tablet by mouth As Needed. 024 Active clonazePAM (KlonoPIN) 1 MG tablet Take 1 tablet by mouth 2 (Two) Times a Day As Needed for Anxiety. 024 Active esomeprazole (nexIUM) 40 MG capsule Take 1 capsule by mouth Daily. 025 Active meloxicam (MOBIC) 7.5 MG tablet Take 1 tablet by mouth 2 (Two) Times a Day As Needed. for pain 025 Active estradiol (ESTRACE) 1 MG tablet Take 1 tablet by mouth Daily. Active ezetimibe (ZETIA) 10 MG tabletIndications:Pure hypercholesterolemia Take 1 tablet by mouth Daily. 30 tablet 11 025 Active FLUoxetine (PROzac) 20 MG capsule Take 1 capsule by mouth Daily. Active spironolactone (ALDACTONE) 25 MG tablet take 1 tablet orally daily Active Evolocumab (REPATHA) solution auto-injector SureClick injectionIndications:Pu re hypercholesterolemia Inject 1 mL under the skin into the appropriate area as directed Every 14 (Fourteen) Days. 2 mL 5 Active valACYclovir (VALTREX) 1000 MG tablet Take 1 tablet by mouth 3 times a day. Active Cholecalciferol 50 MCG (2000 UT) capsule Take 1 capsule by mouth Daily. Active folic acid (FOLVITE) 400 MCG tablet Take 1 tablet by mouth Daily. Active cyanocobalamin 1000 MCG/ML injection Inject 1 mL every month by subcutaneous route for 90 days. Active Active Problems Problem Noted Date Diagnosed Date Pure hypercholesterolemia 12/07/2024 Abnormal stress echo 09/01/2023 Sinus congestion 07/10/2017 Encounters Date Type Department Care Team Description 02/21/2025 Results Follow-Up [facility] [address] [facility] [address] [place] [address] Gale Collado MD 02/20/2025 10:20 AM EST Lab [facility] [place] [address] [facility] [address] [place] [address] Pure hypercholesterolemia 02/20/2025 9:00 AM EST Office Visit [facility] [address] [facility] [address] [place] [address] Gale Collado MD Pure hypercholesterolemia (Primary Dx); Precordial chest pain; Pre-operative cardiovascular examination 02/20/2025 Travel 02/06/[address] [facility] [address] [phone] [facility] 01/26/[address] [facility] [address] [place] [phone] Nargis Edwards MA 01/05/[address] [facility] [address] [place] [phone] Nargis Edwards MA from Last 3 Months Family History Medical History Relation Name Comments Cancer Father Heart attack Father Hypertension Father Anxiety disorder Mother did not combs se her, does not know well Coronary artery disease Paternal Grandfather Coronary artery disease Sister Relation Name Status Comments Father Mother Unknown Paternal Grandfather Sister Alive Social History Tobacco Use Types Packs/Day Years [...] on file Sexual Orientation Not on file Last Filed Vital Signs Vital Sign Reading Time Taken Comments Blood Pressure 108/72 02/20/2025 9:15 AM EST Pulse 73 02/20/2025 9:15 AM EST Temperature 36.7 C (98.1 F) 04/27/2018 12:07 PM EST Respiratory Rate 12 04/27/2018 12:07 PM EST Oxygen Saturation 99% 02/20/2025 9:15 AM EST Inhaled Oxygen Concentration - - Weight 74.4 kg (164 lb) 02/20/2025 9:15 AM EST Height 157.5 cm (5' 2 ) 02/20/2025 9:15 AM EST Body Mass Index 30 02/20/2025 9:15 AM EST Plan of Treatment Upcoming Encounters Date Type Department Care Team (Late st Contact Info) Description 08/22/2025 3:30 PM EDT Office Visit [facility] [address] [place] [phone] Gale Collado MD [address] [place] [address] Health Maintenance Due Date Last Done Comments Annual Gynecologic Pelvic and Breast Exam 1973 TDAP/TD VACCINES (1 - Tdap) 1992 MAMMOGRAM 2013 ANNUAL PHYSICAL 05/24/2017 HEPATITIS C SCREENING 05/24/2017 COLOGUARD 2018 COLON CANCER SCREENING 5 YEA R SIGMOIDOSCOPY 2018 COLONOSCOPY 2018 [address]AL CANCER SCREENING 2018 CT COLONOGRAPHY 2018 FECAL OCCULT BLOOD TEST 2018 FIT Testing (1 year) 2018 Pneumococcal Vaccine 50+ (1 of 1 - PCV) 2023 INFLUENZA VACCINE 11/17/2024 ZOSTER VACCINE (2 of 2) 04/01/2025 02/04/2025 LIPID PANEL 02/20/2026 02/20/2025, 11/09/2024 Procedures Procedure Name Priority Date/Time Associated Diagnosis Comments COMPREHENSIVE METABOLIC PANEL Routine 02/20/2025 10:11 AM EST Pure hypercholesterolemia LIPID PANEL Routine 02/20/2025 10:11 AM EST Pure hypercholesterolemia from Last 3 Months Results * (ABNORMAL) Lipid Panel (02/20/2025 10:11 AM EST) Total Cholesterol 175 0 - 200 mg/dL 02/21/2025 12:45 AM EST [facility] Triglycerides 83 0 - 150 mg/dL 02/21/2025 12:45 AM [facility] HDL Cholesterol 68(H) 40 - 60 mg/dL 02/21/2025 12:45 AM [facility] LDL Cholesterol 92 0 - 100 mg/dL 02/21/2025 12:45 AM [facility] VLDL Cholesterol 15 5 - 40 mg/dL 02/21/2025 12:45 AM [facility] LDL/HDL Ratio 1.33 02/21/2025 12:45 AM [facility] Blood Venipuncture / Unknown 02/20/2025 10:11 AM EST 02/20/2025 10:11 AM EST [facility] - 02/21/2025 12:45 AM EST Cholesterol [...] MD LAB BLOOD ORDERABLES Final R esult [facility]
[address] [place] [address], * Comprehensive Metabolic Panel (02/20/2025 10:11 AM EST) Glucose 71 65 - 99 mg/dL 02/21/2025 12:45 AM EST [facility] BUN 15.0 6.0 - 20.0 mg/dL 02/21/2025 12:45 AM EST [facility] Creatinine 0.92 0.57 - 1.00 mg/dL 02/21/2025 12:45 AM EST [facility] Sodium 138 136 - 145 mmol/L 02/21/2025 12:45 AM EST [facility] Potassium 4.4 3.5 - 5.2 mmol/L 02/21/2025 12:45 AM EST [facility] Chloride 103 98 - 107 mmol/L 02/21/2025 12:45 AM EST [facility] CO2 24.7 22.0 - 29.0 mmol/L 02/21/2025 12:45 AM EST [facility] Calcium 9.6 8.6 - 10.5 mg/dL 02/21/2025 12:45 AM EST [facility] Total Protein 6.9 6.0 - 8.5 g/dL 02/21/2025 12:45 AM EST [facility] Albumin 4.1 3.5 - 5.2 g/dL 02/21/2025 12:45 AM [facility] ALT (SGPT) 15 1 - 33 U/L 02/21/2025 12:45 AM [facility] AST (SGOT) 22 1 - 32 U/L 02/21/2025 12:45 AM [facility] Alkaline Phosphatase 76 39 - 117 U/L 02/21/2025 12:45 AM [facility] Total Bilirubin 0.5 0.0 - 1.2 mg/dL 02/21/2025 12:45 AM [facility] Globulin 2.8 gm/dL 02/21/2025 12:45 AM [facility] A/G Ratio 1.5 g/dL 02/21/2025 12:45 AM [facility] BUN/Creatinine Ratio 16.3 7.0 - 25.0 02/21/2025 12:45 AM [facility] Anion Gap 10.3 5.0 - 15.0 mmol/L 02/21/2025 12:45 AM [facility] eGFR 75.5 >60.0 mL/min/1.7 3 02/21/2025 12:45 AM [facility] Blood Venipuncture / Unknown 02/20/2025 10:11 AM EST 02/20/2025 10:11 AM [facility] - 02/21/2025 12:45 AM EST [...] MD LAB BLOOD ORDERABLES Final R esult [facility]
[address] [place] [address], [place] [phone] from Last 3 Months Insurance [facility] MEDICAID Care Teams Seed Trucker Relationship Specialty Start Date End Date Shandra Delarosa MD [address] [facility] [place] [address] PCP - General Emergency Medicine 01/07/23
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
[2025-04-06] MEDS: PROCHLORPERAZINE 10MG/2ML VIAL 10 MG IV (10:24)
[2025-04-06] MEDS: KETOROLAC 30MG/ML VIAL 15 MG IV (10:26)
[2025-04-06] MEDS: DEXAMETHASONE 4MG/ML 1ML VIAL 10 MG IV (10:29)
[2025-04-06 10:30] VITALS: BP 119/74; PULSE 83; O2SAT 99
[2025-04-06] MEDS: LACTATED RINGERS 1000ML 1,000 ML 999 ML IV (10:37)
[2025-04-06 11:00] VITALS: BP 138/84; PULSE 71; O2SAT 99
[2025-04-06 11:33] LABS: Hepatitis C Ab Qual. W/ RFX NEGATIVE (Negative)
[2025-04-06 11:50] VITALS: BP 139/99; PULSE 66; RESP 19; TEMP 36.7; O2SAT 99
== END 2025-04-06 11:54 | disposition home or self-care (01) ==
PROVIDERS: Emergency Provider Student in an Organized Health Care Education/Training Program; PCP Emergency Medicine
DX: G43.909 Migraine, unspecified, not intractable, without status migrainosus (principal); M54.2 Cervicalgia; V49.40XA Driver injured in collision with unspecified motor vehicles in traffic accident, initial encounter
CPT/HCPCS: 86803; 87389; 96361; 96374; 96375; 99284; 99285; J0780; J1100; J1200; J1885; J7120